=== PATIENT | male | born 1940 | race Caucasian/White ===

== ENCOUNTER 2023-08-25 15:51 | Inpatient (IN) | payer MEDICARE, SELFPAY ==
[2023-08-25] VITALS (13 sets, daily range): BP systolic 112–199; BP diastolic 65–94; PULSE 60–73; BMI 23.6
--- NOTE | 2023-08-25 12:59 | ED.GENMED ---
History of Present Illness
General
Chief Complaint: Weakness
Source: patient and family
Exam Limitations: none
Time Seen by Provider: 08/25/23 12:58
Nursing documentation reviewed up to this point in time: agreed with
Travel History
Have you had any contact with someone who has COVID-19?: No
Do you have any symptoms of coronavirus? Fever > 100 degrees, chills, cough, shortness of breath, sore throat, loss of taste or smell, muscle aches, or headache?: No
History of Present Illness
History of Present Illness:
83-year-old male with history of CVA, HTN, HLD, pacemaker, dementia, NIDDM, dialysis M/W/FOR, did not go today, Parkinsonism (not officially diagnosed per family), presents for slurred speech since 4 a.m., fall yesterday due to leg weakness 'they
just give out.' Treating with Valcyclovir for shingles diagnosed 2 weeks ago. States 'I fell a couple of times, I just collapse.' Son and daughter in law at bedside state they saw him last week and then today he has a significant change in cognitive
function, speech slurred, having trouble with fluency of thoughts. Awakened at 4:30 this a.m. to go to dialysis (he drives himself) and he 'couldn't even walk' due to weakness in legs and 'both my feet are numb.'
He has had worsening 'shakes' of arms and hands.
Past History
Past History
ED Past Medical History: CAD, CHF, HTN, Hypercholesterolemia, IDDM and Renal failure (End-stage renal disease, dialysis dependent)
ED Past Surgical History: Cardiac (Cardiac cath with stents, Pacemaker) and Urological (Bladder and kidneys removed due to CA, Prostatectomy)
Social History
Tobacco: Former smoker
Alcohol: None
Personal:
Living: with family
Employment: Retired
Family History
Family History: Other (Noncontributory)
Review of Systems
Review of Systems
Allergies reviewed?: Yes
All Other Systems: ROS reviewed and negative except as documented in HPI and ROS
Constitutional: Denies fever
Respiratory: Denies trouble breathing
Cardiac: Denies chest pain, diaphoresis, palpitations or syncope
ABD/GI: Denies abdominal pain, nausea, vomiting, diarrhea, constipated or anorexia
: Reports other (Anuric, on dialysis)
Musculoskeletal: Denies edema
Skin: Reports no symptoms
Neurological: Reports weakness (legs are weak, they give out); Denies headache
Phy Exam
Physical Exam
Physical Exam:
GENERAL: No acute distress. A&Ox3.
CONSTITUTIONAL: Afebrile.
EYES: Clear, conjunctivae normal
ENMT: moist mucus membranes, Pharynx nl
RESPIRATORY: Regular respirations, nonlabored, lungs clear.
CARDIOVASCULAR: Regular rate and rhythm, no murmurs, no rubs.
GI: Soft, nontender, normal BS
MUSCULOSKELETAL: Moves with ease. Well perfused.
SKIN: Warm, dry, pink
PSYCH: Normal mood and affect. Well kept, interactive and appropriate
NEUROLOGIC: Awake, alert and oriented. Speech mildly garbled but totally comprehendible. Strength equal throughout 11/18. Xaxnae-fa-lave intact. Essential tremor upper and lower extremities. no focal neurological deficits
Course
Orders/Labs/Results
Orders:
Orders
08/25/23 13:18
CT Head W/o Iv Contrast Urgent
Comment:
Reason For Exam: slurred speech, legs weak, falls
08/25/23 13:40
Complete Blood Count/With Diff Urgent
Comprehensive Metabolic Panel Urgent
Folate Urgent
Free T4 Urgent
TSH Reflex To Free T4 Urgent
Comment: ADD ON
Vitamin B12 Urgent
08/25/23 14:21
Add On- LAB Urgent
Tests Added?: TSH reflex T4
08/25/23 14:35
NEPHROLOGY CONSULT Urgent
Consulting Provider: Jorje Hansen V.
Was physician already notified: Yes
Reason for consult: dialysis pt being admitted
08/25/23 Dinner
1600 calorie (13 carb) Diabetic
At Your Request: Limited, Executive Sales Assistant Required
Does patient need a safe tray?: No
08/25/23 15:12
Admit/Transfer Patient As Directed
Co-Sign Provider:
Level of Care: Inpatient admission
Assign to:: Telemetry
Physician / Group: hosp
Diagnosis: ESRD/ FAlls
Reason for Telemetry: Medication for Arrhythmia
Date to Stop Telemetry: 08/27/23
Time to Stop Telemetry: 11:00
Reason for Hospitalization: End-stage renal disease/change in mental status
Expected length of stay greater than two midnights?: Yes
ELOS- Estimated Length of Stay in days: 3
I certify the patient meets the requirements for IP care: Yes
08/25/23 15:16
Code Status As Directed
Resuscitation Status: Full Code
08/25/23 17:17
Carbidopa/Levodopa [Sinemet 25-100] 1 tablet PO TID
Dextrose 50%-Water [Dextrose 50% Syringe] 12.5 grams IV [id number] PRN
Glucagon [GlucaGen] 1 mg IM PRN PRN
Insulin Aspart Corrective Low [Novolog Flexpen-Low Resistance] See Protocol SC AC
08/25/23 17:17
Activity As Directed
Activity Level: With Assistance
Bedside Glucose Monitoring As Directed
Frequency: AC&HS
Comment: Change to q6h if pt on TPN, tube feeding or not eating
Precautions As Directed
Type of Precautions: Other
Comment: Falls
Vital Signs As Directed
Frequency: Per unit guidelines
DX Deep Vein Thrombosis Video Routine
08/25/23 18:00
Calcium Acetate [Phoslo] 1,334 mg PO AC
Midodrine [ProAmatine] 10 mg PO TID @ 0800,1200,1700
08/25/23 19:43
TSH Routine
08/25/23 20:00
Docusate Sodium [Colace] 100 mg PO BID
Heparin 5,000 units SC Q12
Pantoprazole [Protonix] 40 mg PO BID
Pregabalin [Lyrica] 75 mg PO BID
08/25/23 22:00
Atorvastatin [Lipitor] 20 mg PO HS
Donepezil [Aricept] 5 mg PO HS
08/26/23 06:00
Basic Metabolic Panel IN AM
Complete Blood Count/No Diff IN AM
Glycohemoglobin (HgbA1c) IN AM
Iron IN AM
Magnesium IN AM
Total Iron Binding IN AM
08/26/23 07:00
Levothyroxine [Synthroid] 100 mcg PO DAILY AT 0700
08/26/23 08:00
Cilostazol [Pletal] 100 mg PO DAILY
Gabapentin [Neurontin] 300 mg PO DAILY
Memantine HCl [Namenda] 5 mg PO DAILY
Sertraline HCl [Zoloft] 50 mg PO DAILY
08/27/23 06:00
Basic Metabolic Panel IN AM
Complete Blood Count/No Diff IN AM
08/27/23 11:00
DC Protocol for Telemetry ONCE
08/28/23 06:00
Basic Metabolic Panel IN AM
Complete Blood Count/No Diff IN AM
08/28/23 08:00
Midodrine [ProAmatine] 5 mg PO MOWEFR@0800
Abnormal Lab Results
08/25/23
13:40
RBC 3.34 L 10^6/uL
(4.70-6.10)
Hgb 11.6 L g/dL
(13.0-18.0)
Hct 34.5 L %
(39.0-52.0)
MCV 103.3 H fL
(80.0-94.0)
MCH 34.7 H pg
(27.0-31.0)
RDW 14.8 H %
(11.5-14.5)
Absolute Lymphs (auto) 0.8 L 10^3/uL
(1.2-3.4)
Immature Gran % 0.6 H %
(0-0.5)
Neutrophils % 81.5 H %
(42.2-75.2)
Lymphocytes % 12.0 L %
(20.5-51.1)
Sodium 134 L mmol/L
(135-145)
Potassium 6.0 H mmol/L
(3.5-5.1)
Chloride 97 L mmol/L
(98-107)
BUN 65 H mg/dl
(9-20)
Creatinine 4.7 H* mg/dL
(0.7-1.3)
Glucose 196 H mg/dl
(70-99)
TSH (Reflex) 5.43 H uIU/ml
(0.47-4.68)
08/25/23 13:40
08/25/23 13:40
Vital Signs
Initial and Last Documented VS:
Initial Vital Signs
Temp Pulse Resp BP Pulse Ox
98.0 F 70 16 193/71 98
08/25/23 11:50 08/25/23 11:50 08/25/23 11:50 08/25/23 11:50 08/25/23 11:50
Last Documented Vital Signs
Temp Pulse Resp BP Pulse Ox
97.7 F 68 18 173/74 97
08/25/23 20:18 08/25/23 20:18 08/25/23 20:18 08/25/23 20:18 08/25/23 20:18
MDM/Problems Addressed
Differential Diagnosis Includes:
CVA, TIA, Diabetic neuropathy, essential tremor, Parkinson's
Acute changes vs exacerbation of chronic issues
MDM/Problems Addressed:
83-year-old male with history of CVA, HTN, HLD, pacemaker, dementia, NIDDM, dialysis M/W/FOR, did not go today, Parkinsonism (not officially diagnosed per family), presents for slurred speech since 4 a.m., fall yesterday due to leg weakness 'they
just give out.' Treating with Valcyclovir for shingles diagnosed 2 weeks ago. States 'I fell a couple of times, I just collapse.' Son and daughter in law at bedside state they saw him last week and then today he has a significant change in cognitive
function, speech slurred, having trouble with fluency of thoughts. Awakened at 4:30 this a.m. to go to dialysis (he drives himself) and he 'couldn't even walk' due to weakness in legs and 'both my feet are numb.'
He has had worsening 'shakes' of arms and hands.
Afebrile, AA&O No focal neurological deficits. Denies hitting head during any of his falls, not anticoagulated.
08/25/2023 1426 PM
CBC with no clinically significant abnormality
CMP: Serum 6.0, BUN/creat 65/4.7, glucose [address]: Radiology report reviewed: No acute intracranial changes.
Hospitalist notified of admission
Nephrology consult in
Pt to be dialyzed today.
*Critical Care Note
Total Time (30-74mins, 75-104mins- exclusive of procedures): Not Applicable
ED Attending Note
-
Portions of this chart may have been created with voice recognition software.� Occasional wrong word or��sound alike� substitutions may have occurred due to the inherent limitations of voice recognition software.
Discharge Plan
Departure
Patient Disposition: Admit
Date of Disposition: 08/25/23
Time of Disposition: 14:36
Admit to: Med/Surg
Presentation/result/management discussed w/ accepting MD/DO: Hospitalist
Condition: Fair
Discharge Problem:
Acute hyperkalemia, Dialysis patient, Bilateral leg weakness, Fall, Altered mental state
Interventions
Interventions:
*Risk Screen - Suicide Last Done: 08/25/23 13:06
*General Assessment Last Done: 08/25/23 13:05
*Neglect/Abuse Screening Last Done: 08/25/23 13:06
ED- Fall Risk Assessment Last Done: 08/25/23 13:07
*ED COVID-19 Vaccine History Last Done: 08/25/23 11:50
*Nursing Disposition Last Done: 08/25/23 19:56
ED- Cardiac Assessment Last Done: 08/25/23 13:07
ED- Neurological Assessment Last Done: 08/25/23 13:07
ED- Pulmonary Assessment Last Done: 08/25/23 13:07
Discharge Date and Time
Discharge Date/Time: 08/25/23 19:57
[2023-08-25 14:06] LABS: % Basophils 0.3 % (0-2); % Eosinophils 0.2 % (0-6); % Immature Granulocytes 0.6 % (0-0.5); % Monocytes 5.4 % (1.7-9.3); % Neutrophils 81.5 % (42.2-75.2); Absolute Lymphocytes 0.8 10^3/uL (1.2-3.4); Absolute Monocytes 0.4 10^3/uL (0.1-0.6); Absolute Neutrophils 5.3 10^3/uL (1.4-6.5); Hematocrit 34.5 % (39.0-52.0); Hemoglobin 11.6 g/dL (13.0-18.0); Mean Corp Hgb Conc. 33.6 g/dL (33.0-37.0); Mean Corpuscular Hgb 34.7 pg (27.0-31.0); Mean Corpuscular Volume 103.3 fL (80.0-94.0); Mean Platelet Volume 10.2 fL (7.4-10.4); Nucleated Red Blood Cells % 0.3 % (-); Platelet Count 173 10^3/uL (130-400); Red Blood Cell Count 3.34 10^6/uL (4.70-6.10); Red Cell Dist. Width 14.8 % (11.5-14.5); White Blood Cell Count 6.4 10^3/uL (4.8-10.8)
[2023-08-25 14:26] LABS: ALT (SGPT) < 10 U/L (0-50); AST (SGOT) 32 U/L (17-59); Albumin 4.3 g/dl (3.5-5.0); Alkaline Phosphatase 98 U/L (38-126); Blood Urea Nitrogen 65 mg/dl (9-20); Calcium 9.2 mg/dl (8.4-10.2); Carbon Dioxide 27 mmol/L (22-30); Chloride 97 mmol/L (98-107); Estimated Creatinine Clearance 12 ml/min; Glucose 196 mg/dl (70-99); Sodium 134 mmol/L (135-145); Total Bilirubin 0.9 mg/dl (0.2-1.3); Total Protein 6.7 g/dl (6.3-8.2); eGFR 11.66
--- NOTE | 2023-08-25 14:35 | PHANOTE ---
08/25/2023, [employer], spoke to pt.'s son and used pharmacy fill data and pt.'s own med. bottles to obtain pt.'s med. history; pt.'s son is unsure if pt. is using Acyclovir 5% ointment, clotrimazole-betamethasone cream, lidocaine-prilocaine
cream, methylprednisolone dose pack, or Trulicity 1.5 mg/0.5mL so I could not confirm these.
[2023-08-25 15:28] LABS: Folate 16.4 ng/ml (2.76-20); Vitamin B12 598 pg/ml (239-931)
--- NOTE | 2023-08-25 15:31 | HPS.HSE ---
Family Physician
-
Family Physician: Milton Palacios
Chief Complaint
-
Recurrent falls this week fell yesterday and resulted in missing today's scheduled hemodialysis
History of Present Illness
83-year-old male with history of CVA, HTN, HLD, pacemaker, dementia, NIDDM, dialysis M/W/FOR, did not go today, Parkinsonism (not officially diagnosed per family), presents for slurred speech since 4 a.m., fall yesterday due to leg weakness 'they
just give out.'
Treating with Valcyclovir for shingles diagnosed 2 weeks ago. He is just now finishing his steroid taper and really does not refer pain to that area anymore.
States 'I fell a couple of times, I just collapse.' Son and daughter in law at bedside state they saw him last week and then today he has a significant change in cognitive function, speech slurred, having trouble with fluency of thoughts.
Awakened at 4:30 this a.m. to go to dialysis (he drives himself) and he 'couldn't even walk' due to weakness in legs and 'both my feet are numb.'
He has had worsening 'shakes' of arms and hands. Although his prescription states he is to take Sinemet 3 times a day he has only been taking it twice a day his Sinemet dosing has been managed by his PCP mostly over the phone based on presentations
and description given to him over the phone. Never been seen by a neurologist to make official diagnosis. He also admits to stopping completely his levothyroxine dosing normal for the last year when asked why he did that he says 'I am stupid'
daughter at bedside acknowledges the patient's noncompliance to some of his medications also admits to the patient's spouse is his only other caregiver who is also inform them mostly sleeps during the day. He is supposed to use a walker but most of
the time does not.
Medical History
Past Medical History
Past Medical History: Reports CAD (Prior cardiac cath with stents and pacemaker), Dementia, Hypothyroidism, NIDDM and Renal Failure (Apparently has had bladder resection for bladder tumor and also nephrectomies/admits to no urine output)
Past Surgical History: Reports Urological
Additional Past Surgical History:
Prostatectomy
Nephrectomy
Bladder tumor resection
Social History
Unable to obtain full social history at this time due to: Dementia
Tobacco: Former Smoker
Alcohol: None
Drug: None
Personal:
Living: With Family
Employment: Retired
Family History
Family History: Not pertinent
Allergies / Home Medications
Allergies reflects when Allergies were last updated in [employer].
Home Medications with original date entered in [employer]
Allergy/Medication List:
Allergies
Allergy/AdvReac Type Severity Reaction Status Date / Time
No Known Allergies Allergy Verified 08/25/23 11:54
Home Medications
donepezil 5 mg tablet 5 mg PO HS 07/15/16
pantoprazole 40 mg tablet,delayed release 40 mg PO BID 07/15/16
sertraline 50 mg tablet 50 mg PO DAILY 07/19/16
dulaglutide 1.5 mg/0.5 mL subcutaneous pen injector (Trulicity) 1.5 mg SQ QWEEK 07/16/19
gabapentin 300 mg capsule 300 mg PO TID 07/16/19
memantine 10 mg tablet 10 mg PO DAILY 07/16/19
midodrine 5 mg tablet 5 mg PO MOWEFR@0800 07/16/19
acyclovir 5 % topical ointment 1 applic topical TID 08/25/23
calcium acetate(phosphat bind) 667 mg capsule 1,334 mg PO TID 08/25/23
carbidopa 25 mg-levodopa 100 mg tablet 1 tab PO TID 08/25/23
cilostazol 50 mg tablet 100 mg PO DAILY 08/25/23
clotrimazole-betamethasone 1 %-0.05 % topical cream 1 applic topical TID 08/25/23
cyclobenzaprine 10 mg tablet 10 mg PO TID 08/25/23
levothyroxine 100 mcg tablet 100 mcg PO DAILY 08/25/23
lidocaine-prilocaine 2.5 %-2.5 % topical cream 1 applic topical MOWEFR 08/25/23
methylprednisolone 4 mg tablets in a dose pack 0 mg PO PER PKG DIR 08/25/23
midodrine 10 mg tablet 10 mg PO TID 08/25/23
pregabalin 75 mg capsule 75 mg PO BID 08/25/23
simvastatin 40 mg tablet 40 mg PO HS 08/25/23
valacyclovir 500 mg tablet 500 mg PO BID 08/25/23
Review of Systems
-
Unable to obtain full review of systems at this time due to: Other (Scanning at times stuttering speech with loss of fluency at times)
History Source: Family
Constitutional: Reports Fatigue
EENT: Reports No Symptoms
Respiratory: Reports No Symptoms
Abdomen/GI: Reports No Symptoms
: Reports Other (No urine output)
Neurological: Reports Numbness (Peripheral neuropathy)
Physical Exam
Vital Signs
Vital Signs
Temp Pulse Resp BP Pulse Ox
98.0 F 61 13 190/75 92
08/25/23 11:50 08/25/23 15:00 08/25/23 15:00 08/25/23 15:00 08/25/23 15:00
Physical Exam
General: No Apparent Distress
HEENT: NormoCephalic
Respiratory: Clear
Cardiac: S1/S2 and Regular Rhythm
GI: Soft
Musculoskeletal: Other (Diminished peripheral pulses diminished sensation)
Neuro: Awake, Alert, No Sensory Deficits (Diminished peripheral sensation to light touch) and Tremors
Psych: Calm and Intact Judgment/Insight
Laboratory Results
-
08/25/23 13:40
08/25/23 13:40
Laboratory Results
Total Bilirubin 0.9 mg/dl (0.2-1.3) 08/25/23 13:40
AST 32 U/L (17-59) 08/25/23 13:40
ALT < 10 U/L (0-50) 08/25/23 13:40
Alkaline Phosphatase 98 U/L (38-126) 08/25/23 13:40
Data Reviewed
-
Critical Care Time (in minutes): 56
CT Scan: Discussed with Physician (Head CT without intracranial abnormality of note)
Lab Data: Labs Reviewed by me (Macrocytosis with a MCV of 103/hemoglobin actually better than it has been in some time at 11.6/creatinine 4.7/blood sugar 196 sodium 134/potassium 6.0/BUN 65/B12 level 598 and within normal limits as is folate)
Impression/Plan
-
IMPRESSION:
83-year-old male with history of CVA, HTN, HLD, pacemaker, dementia, NIDDM, dialysis M/W/FOR, did not go today, Parkinsonism (not officially diagnosed per family), presents for slurred speech since 4 a.m., fall yesterday due to leg weakness 'they
just give out.'
Treating with Valcyclovir for shingles diagnosed 2 weeks ago. He is just now finishing his steroid taper and really does not refer pain to that area anymore.
States 'I fell a couple of times, I just collapse.' Son and daughter in law at bedside state they saw him last week and then today he has a significant change in cognitive function, speech slurred, having trouble with fluency of thoughts.
Awakened at 4:30 this a.m. to go to dialysis (he drives himself) and he 'couldn't even walk' due to weakness in legs and 'both my feet are numb.'
He has had worsening 'shakes' of arms and hands. Although his prescription states he is to take Sinemet 3 times a day he has only been taking it twice a day his Sinemet dosing has been managed by his PCP mostly over the phone based on presentations
and description given to him over the phone. Never been seen by a neurologist to make official diagnosis. He also admits to stopping completely his levothyroxine dosing normal for the last year when asked why he did that he says 'I am stupid'
daughter at bedside acknowledges the patient's noncompliance to some of his medications also admits to the patient's spouse is his only other caregiver who is also inform them mostly sleeps during the day. He is supposed to use a walker but most of
the time does not.
Change in mental status and recurrent falls
-No focal abnormality on exam and head CT unremarkable
-Will need to rule out metabolic abnormality
-Patient stopped taking any thyroid medication for the last year TSH pending resume 100 mcg dosage of Synthroid
-Macrocytic anemia noted but B12 and folate levels within normal limits here
-Possible neurologic diagnoses may be in relation to progressing Parkinson's as not properly treated/
-Other possibility would be acute ischemic events not noted on CT imaging will obtain MRI
-Other consideration would be ongoing peripheral neuropathy from longstanding diabetes/continue gabapentin/on muscle relaxant therapy with cyclobenzaprine which will be held
-Check orthostatics suspect autonomic dysfunction given history of neuropathy, diabetes and end-stage renal disease/continue midodrine
-Ongoing neurologic assessment
-PT OT eval
Parkinson's disease
-Has been on Sinemet for years from his PCP
-Never had neurologic evaluation
-Requested consultation with neurology will not see the patient inpatient and would like to see as outpatient to address Parkinson's
-Continue on carbidopa levodopa 25-100 3 times daily
End-stage renal disease on hemodialysis
-Missed scheduled Monday dialysis scheduled for today
-Will address hyperkalemia
-Nephrology consulted will obtain HD today
Hypothyroidism
-Noncompliant to levothyroxine
-Restart and obtain TSH
Macrocytosis
-B12 and folate levels normal
-Obtain iron levels
Recent herpes zoster involving the right flank dermatome
-Has completed course of steroid therapy and Valtrex
-On inspection of the area seems to be fully scabbed over and no significant pain or neuropathy
Prior history of bladder tumor/resection
-Prior bilateral nephrectomies/prostatectomy
-Has no urine output
-On hemodialysis
Type 2 diabetes mellitus
-Medication management is weekly Trulicity
-Unavailable here will give sign scale coverage
-Suspect underlying diabetic neuropathy
Prior history of spinal stenosis
-Would be prudent to also obtain spine imaging
Peripheral arterial disease
-Continue Pletal
Full CODE STATUS
DVT prophylaxis with heparin
Discussed above management plan with daughter at bedside/will probably need to at discharge obtain some help at home versus alternative living arrangement for safety
[2023-08-25 16:15] LABS: TSH Reflex To Free T4 5.43 uIU/ml (0.47-4.68)
--- NOTE | 2023-08-25 16:17 | CON.MD ---
Addendum entered and electronically signed by Jorje Hansen DO 08/25/23 16:27:
Will provide hydralazine 10 mg IV every 6 hours for systolic blood pressure greater than 165
Fluid restriction 48 ounces daily
Low sodium and potassium diet
Original Note:
Consultation - Medical
-
Impression:
ESRD MWF
Uncontrolled hypertension
Hyperkalemia
History of stroke
Dementia
Pacemaker
Diabetes
Hypotension on dialysis
Anemia
Parkinson's
hx Bladder CA nwith cystectomy and nephrectomies, prostatectomy
AVF
Hypothyroid
History of coronary artery disease with multiple stenting procedure
Plan:
HD tomorrow
lokelma tonight re: hyperkalemia
bp control
prn hydralazine provided for hypertension
[2023-08-25] MEDS: LOKELMA 10 GRAM PO (16:40)
[2023-08-25 16:44] LABS: Free T4 0.78 ng/dl (0.78-2.19)
[2023-08-25] MEDS: SINEMET 25-100 1 TABLET PO ×2 (18:47→21:17)
[2023-08-25] MEDS: PHOSLO 1334 MG PO (18:47)
[2023-08-25] MEDS: ProAmatine 10 MG PO (18:47)
[2023-08-25 19:10] LABS: Glucose - Point of Care 220 mg/dl (70-99)
[2023-08-25] MEDS: LIPITOR 20 MG PO (21:17)
[2023-08-25] MEDS: PROTONIX 40 MG PO (21:17)
[2023-08-25] MEDS: COLACE 100 MG PO (21:17)
[2023-08-25] MEDS: HEPARIN 5000 UNITS SC (21:18)
[2023-08-25] MEDS: ARICEPT 5 MG PO (21:18)
[2023-08-25] MEDS: NOVOLOG FLEXPEN-LOW RESISTANCE SC (21:21)
[2023-08-25 21:29] LABS: Glucose - Point of Care 169 mg/dl (70-99)
--- NOTE | 2023-08-25 23:55 | PTCARENOTE ---
Received patient from ED [facility]. Patient ambulated from stretcher to bed with assist x 1. Pt oriented to room. Patient placed on compliance monitor , vital signs taken . Offered no complaints. Will Continue to assess patient status.
[2023-08-26] VITALS (7 sets, daily range): BP systolic 83–165; BP diastolic 35–89; PULSE 69–73; BMI 23.3
[2023-08-26] MEDS: SYNTHROID 100 MCG PO (05:25)
[2023-08-26 06:14] LABS: Hematocrit 31.4 % (39.0-52.0); Hemoglobin 10.9 g/dL (13.0-18.0); Mean Corp Hgb Conc. 34.7 g/dL (33.0-37.0); Mean Corpuscular Hgb 35.5 pg (27.0-31.0); Mean Corpuscular Volume 102.3 fL (80.0-94.0); Mean Platelet Volume 10.1 fL (7.4-10.4); Platelet Count 166 10^3/uL (130-400); Red Blood Cell Count 3.07 10^6/uL (4.70-6.10); Red Cell Dist. Width 14.6 % (11.5-14.5); White Blood Cell Count 6.3 10^3/uL (4.8-10.8)
[2023-08-26 06:44] LABS: Blood Urea Nitrogen 81 mg/dl (9-20); Calcium 9.1 mg/dl (8.4-10.2); Carbon Dioxide 28 mmol/L (22-30); Chloride 96 mmol/L (98-107); Estimated Creatinine Clearance 10 ml/min; Glucose 114 mg/dl (70-99); Iron 140 ug/dl (49-181); Magnesium 2.3 mg/dl (1.6-2.3); Potassium 5.6 mmol/L (3.5-5.1); Sodium 137 mmol/L (135-145); eGFR 9.06
[2023-08-26 06:54] LABS: Percent Saturation 90 % (20-50); Total Iron Binding Capacity 154 ug/dl (261-462)
[2023-08-26 08:44] LABS: Glycohemoglobin (HgbA1c) 6.6 % (4.0-5.6)
[2023-08-26 08:48] LABS: Glucose - Point of Care 91 mg/dl (70-99)
[2023-08-26] MEDS: NOVOLOG FLEXPEN-LOW RESISTANCE SC ×2 (09:40→12:39)
--- NOTE | 2023-08-26 10:07 | W.PN.HOSP.TC ---
Today's Communication/Plan
-
May need to workup continue to check orthostatics once up and about assess PT OT
Check orthostatics
Will need to have an outpatient follow-up workup with neurology as would not be worked up in the hospital
MRI is incompatible with his pacer
Assessment / Plan
Assessment / Plan
83-year-old male with history of CVA, HTN, HLD, pacemaker, dementia, NIDDM, dialysis M/W/FOR, did not go today, Parkinsonism (not officially diagnosed per family), presents for slurred speech since 4 a.m., fall yesterday due to leg weakness 'they
just give out.'
Treating with Valcyclovir for shingles diagnosed 2 weeks ago.� He is just now finishing his steroid taper and really does not refer pain to that area anymore.
�States 'I fell a couple of times, I just collapse.' Son and daughter in law at bedside state they saw him last week and then today he has a significant change in cognitive function, speech slurred, having trouble with fluency of thoughts.
�Awakened at 4:30 this a.m. to go to dialysis (he drives himself) and he 'couldn't even walk' due to weakness in legs and 'both my feet are numb.'
He has had worsening 'shakes' of arms and hands.� Although his prescription states he is to take Sinemet 3 times a day he has only been taking it twice a day his Sinemet dosing has been managed by his PCP mostly over the phone based on presentations
and description given to him over the phone.� Never been seen by a neurologist to make official diagnosis.� He also admits to stopping completely his levothyroxine dosing normal for the last year when asked why he did that he says 'I am stupid'
daughter at bedside acknowledges the patient's noncompliance to some of his medications also admits to the patient's spouse is his only other caregiver who is also inform them mostly sleeps during the day.� He is supposed to use a walker but most of
the time does not.
Change in mental status and recurrent falls
-No focal abnormality on exam and head CT unremarkable
-Will need to rule out metabolic abnormality
-Patient stopped taking any thyroid medication for the last year TSH pending resume 100 mcg dosage of Synthroid
-Macrocytic anemia noted but B12 and folate levels within normal limits here
-Possible neurologic diagnoses may be in relation to progressing Parkinson's as not properly treated/Will only be seen by neurology as outpatient to work this up
-Other possibility would be acute ischemic events not noted on CT imaging /His pacemaker is incompatible with MRI
-Other consideration would be ongoing peripheral neuropathy from longstanding diabetes/continue gabapentin/on muscle relaxant therapy with cyclobenzaprine which will be held
-Check orthostatics suspect autonomic dysfunction given history of neuropathy, diabetes and end-stage renal disease/continue midodrine
-Ongoing neurologic assessment
-PT OT eval
Parkinson's disease
-Has been on Sinemet for years from his PCP
-Never had neurologic evaluation
-Requested consultation with neurology will not see the patient inpatient and would like to see as outpatient to address Parkinson's
-Continue on carbidopa levodopa 25-100 3 times daily
End-stage renal disease on hemodialysis
-Missed scheduled Monday dialysis scheduled for today
-Will address hyperkalemia
-Nephrology consulted will obtain HD had to postponed to today 08/26
Hypothyroidism
-Noncompliant to levothyroxine
-Restart and obtain TSH
Macrocytosis
-B12 and folate levels normal
-Obtain iron levels
Recent herpes zoster involving the right flank dermatome
-Has completed course of steroid therapy and Valtrex
-On inspection of the area seems to be fully scabbed over and no significant pain or neuropathy
Prior history of bladder tumor/resection
-Prior bilateral nephrectomies/prostatectomy
-Has no urine output
-On hemodialysis
Type 2 diabetes mellitus
-Medication management is weekly Trulicity
-Unavailable here will give sign scale coverage
-Suspect underlying diabetic neuropathy
Prior history of spinal stenosis
-Would be prudent to also obtain spine imaging
-Lumbar sacral spine films do show severe osteoarthritic changes
Again pacer incompatible with MRI
-Will need to see how he does with PT/OT modalities may need to workup neuropathy from his lumbar disease
Peripheral arterial disease
-Continue Pletal
Anticipated Discharge: 24 - 48 hours
Subjective/Interval History
-
Date of Service: August 26, 2023
Remains hard of hearing/Speech seems to be a little betterUndergoing hemodialysis presently unable to get done yesterday due to lack of room
Objective Data
-
Labs:
Laboratory Results
08/26/23
05:30
WBC 6.3
Hgb 10.9 L
Hct 31.4 L
Plt Count 166
Sodium 137
Potassium 5.6 H
Chloride 96 L
Carbon Dioxide 28
BUN 81 H
Creatinine 5.8 H*
Glucose 114 H
Calcium 9.1
Vital Signs:
Vital Signs
Temp Pulse Resp BP Pulse Ox
97 F 66 18 107/59 99
08/26/23 03:47 08/26/23 03:47 08/26/23 03:47 08/26/23 03:47 08/26/23 03:47
Review of Systems
-
Unable to obtain full review of systems at this time due to: Dementia
History Source: Patient
Constitutional: Reports Weakness
EENT: Reports No Symptoms Reported
Respiratory: Reports No Symptoms
Cardiac: Reports No Symptoms
Abdomen/GI: Reports No Symptoms
Physical Exam
-
General: Comfortable
HEENT: Normocephalic
Respiratory: Clear to Auscultation
Cardiac: Regular Rhythm
GI: Soft, Nontender and Nondistended
Musculoskeletal: Edema, Right Lower Extrem and Edema, Left Lower Extrem
Neuro: Awake, Alert and Oriented
Psych: Calm and Confused
Data Reviewed
-
Total Time Spent with Patient (in minutes): 45
Labs: Labs Reviewed by me (Hgb 10.9/ creat5.8/ / K+ 5.6)
--- NOTE | 2023-08-26 10:32 | W.PN.NEPH.HD ---
Assessment
-
Patient seen on HD
sbp at 122 for current u/f
Progress Note - Hemodialysis
-
Date of Service: August 26, 2023
Duration: 30 minutes and 3 hours
Potassium Bath: 2
Calcium Bath: 2.5
Opti-Dialyzer: 160
Ultrafiltration: Other (1kg (EDW 70.5kg))
Blood Flow: 400
Dialysate Flow: 600
Heparin: none
EPO: none
[2023-08-26] MEDS: PHOSLO PO (10:39)
[2023-08-26 12:09] LABS: Glucose - Point of Care 86 mg/dl (70-99)
[2023-08-26] MEDS: HEPARIN 5000 UNITS SC ×2 (12:39→20:09)
[2023-08-26] MEDS: COLACE 100 MG PO ×2 (12:39→20:09)
[2023-08-26] MEDS: PROTONIX 40 MG PO ×2 (12:40→20:09)
[2023-08-26] MEDS: PHOSLO 1334 MG PO ×2 (12:40→17:06)
[2023-08-26] MEDS: PLETAL 100 MG PO (12:40)
[2023-08-26] MEDS: NEURONTIN 300 MG PO (12:40)
[2023-08-26] MEDS: SINEMET 25-100 1 TABLET PO ×3 (12:40→21:06)
[2023-08-26] MEDS: NAMENDA 5 MG PO (12:41)
[2023-08-26] MEDS: ZOLOFT 50 MG PO (12:41)
[2023-08-26] MEDS: FLUSH (NSS) 1 FLUSH IV (12:42)
[2023-08-26] MEDS: ProAmatine PO (12:45)
[2023-08-26] MEDS: MIRALAX 17 GRAMS PO (14:32)
[2023-08-26] MEDS: ProAmatine 10 MG PO ×2 (15:05→17:06)
--- NOTE | 2023-08-26 15:59 | PTCARENOTE ---
Pt's BP after HD was 165/86. Pt stating that he feels ok, just tired. Discussed with Dr. Velasquez about possibly adding administration parameters to pt's midodrine. Dr. Velasquez indicated that he would like to see pt's orthostatic BPs prior to
adding parameters. See documented orthostatic BPs. Pt's BP dropped to 83/38 with sitting, stating that he felt dizzy when sitting and then again when standing. Made Dr. Velasquez aware of above and administered Midodrine, will monitor.
[2023-08-26 16:12] LABS: Glucose - Point of Care 298 mg/dl (70-99)
[2023-08-26] MEDS: ULTRAM 50 MG PO (18:18)
[2023-08-26] MEDS: NOVOLOG FLEXPEN-LOW RESISTANCE 3 UNITS SC (18:18)
[2023-08-26] MEDS: LIPITOR 20 MG PO (21:06)
[2023-08-26] MEDS: ARICEPT 5 MG PO (21:06)
[2023-08-26 21:27] LABS: Glucose - Point of Care 131 mg/dl (70-99)
[2023-08-27 03:10] VITALS: BP 132/46
[2023-08-27] MEDS: SYNTHROID 100 MCG PO (04:42)
[2023-08-27 06:00] VITALS: BMI 23.0
[2023-08-27 06:47] LABS: Hematocrit 32.4 % (39.0-52.0); Hemoglobin 11.1 g/dL (13.0-18.0); Mean Corp Hgb Conc. 34.3 g/dL (33.0-37.0); Mean Corpuscular Hgb 35.2 pg (27.0-31.0); Mean Corpuscular Volume 102.9 fL (80.0-94.0); Mean Platelet Volume 10.5 fL (7.4-10.4); Platelet Count 154 10^3/uL (130-400); Red Blood Cell Count 3.15 10^6/uL (4.70-6.10); Red Cell Dist. Width 14.1 % (11.5-14.5)
[2023-08-27 07:01] LABS: Blood Urea Nitrogen 46 mg/dl (9-20); Calcium 8.5 mg/dl (8.4-10.2); Carbon Dioxide 31 mmol/L (22-30); Chloride 92 mmol/L (98-107); Estimated Creatinine Clearance 14 ml/min; Glucose 100 mg/dl (70-99); Potassium 5.2 mmol/L (3.5-5.1); Sodium 129 mmol/L (135-145); eGFR 14.59
[2023-08-27 07:50] LABS: Glucose - Point of Care 117 mg/dl (70-99)
[2023-08-27 08:00] VITALS: BP 137/96
[2023-08-27] MEDS: NOVOLOG FLEXPEN-LOW RESISTANCE SC ×2 (08:57→14:38)
[2023-08-27] MEDS: ZOLOFT 50 MG PO (09:31)
[2023-08-27] MEDS: PROTONIX 40 MG PO ×2 (09:31→19:49)
[2023-08-27] MEDS: SINEMET 25-100 1 TABLET PO ×3 (09:32→21:54)
[2023-08-27] MEDS: ProAmatine PO (09:32)
[2023-08-27] MEDS: NAMENDA 5 MG PO (09:33)
[2023-08-27] MEDS: NEURONTIN 300 MG PO (09:33)
[2023-08-27] MEDS: COLACE 100 MG PO ×2 (09:34→19:49)
[2023-08-27] MEDS: HEPARIN 5000 UNITS SC ×2 (09:34→19:49)
[2023-08-27] MEDS: MIRALAX 17 GRAMS PO (09:36)
[2023-08-27] MEDS: PHOSLO 1334 MG PO ×3 (09:44→18:09)
[2023-08-27] MEDS: PLETAL 100 MG PO (09:44)
[2023-08-27 10:04] VITALS: BP 120/49; PULSE 67; O2SAT 95
--- NOTE | 2023-08-27 10:45 | W.PN.HOSP.TC ---
Today's Communication/Plan
-
Not sure a safe discharge is yet as was significantly orthostatic with BPs as low as low 80s yesterday after dialysis
Will place on compression stockings
Continue midodrine especially on dialysis days
Will need to follow-up with neurology as outpatient as they will not see here in regards to his Parkinson's
Can discontinue no logic checks at this point
Assessment / Plan
Assessment / Plan
83-year-old male with history of CVA, HTN, HLD, pacemaker, dementia, NIDDM, dialysis M/W/FOR, did not go today, Parkinsonism (not officially diagnosed per family), presents for slurred speech since 4 a.m., fall yesterday due to leg weakness 'they
just give out.'
Treating with Valcyclovir for shingles diagnosed 2 weeks ago.� He is just now finishing his steroid taper and really does not refer pain to that area anymore.
�States 'I fell a couple of times, I just collapse.' Son and daughter in law at bedside state they saw him last week and then today he has a significant change in cognitive function, speech slurred, having trouble with fluency of thoughts.
�Awakened at 4:30 this a.m. to go to dialysis (he drives himself) and he 'couldn't even walk' due to weakness in legs and 'both my feet are numb.'
He has had worsening 'shakes' of arms and hands.� Although his prescription states he is to take Sinemet 3 times a day he has only been taking it twice a day his Sinemet dosing has been managed by his PCP mostly over the phone based on presentations
and description given to him over the phone.� Never been seen by a neurologist to make official diagnosis.� He also admits to stopping completely his levothyroxine dosing normal for the last year when asked why he did that he says 'I am stupid'
daughter at bedside acknowledges the patient's noncompliance to some of his medications also admits to the patient's spouse is his only other caregiver who is also inform them mostly sleeps during the day.� He is supposed to use a walker but most of
the time does not.
Change in mental status and recurrent falls/workup thus far consistent with significant autonomic dysfunction multifactorial/from ESRD/diabetes neuropathy/Parkinson's?/Orthostatic hypotension especially on dialysis days
-No focal abnormality on exam and head CT unremarkable
-Patient stopped taking any thyroid medication for the last year TSH pending resume 100 mcg dosage of Synthroid
-Macrocytic anemia noted but B12 and folate levels within normal limits here
-Possible neurologic diagnoses may be in relation to progressing Parkinson's as not properly treated/Will only be seen by neurology as outpatient to work this up
-Other possibility would be acute ischemic events not noted on CT imaging /His pacemaker is incompatible with MRI
-Other consideration would be ongoing peripheral neuropathy from longstanding diabetes/continue gabapentin/on muscle relaxant therapy with cyclobenzaprine which will be held/was probably on toxic levels of gabapentin as he was also taking Lyrica
-Check orthostatics suspect autonomic dysfunction given history of neuropathy, diabetes and end-stage renal disease/continue midodrine/add compression stockings
-Ongoing neurologic assessment
-Continue midodrine at higher dosages on dialysis days
-PT OT eval recommending VNA
Parkinson's disease
-Has been on Sinemet for years from his PCP
-Never had neurologic evaluation
-Requested consultation with neurology will not see the patient inpatient and would like to see as outpatient to address Parkinson's
-Continue on carbidopa levodopa 25-100 3 times daily
End-stage renal disease on hemodialysis
-Missed scheduled Monday dialysis scheduled for today
-Will address hyperkalemia
-Nephrology consulted will obtain HD had to postponed to today 08/26
Hypothyroidism
-Noncompliant to levothyroxine
-Restart and obtain TSH
Macrocytosis
-B12 and folate levels normal
-Obtain iron levels
Recent herpes zoster involving the right flank dermatome
-Has completed course of steroid therapy and Valtrex
-On inspection of the area seems to be fully scabbed over and no significant pain or neuropathy
Prior history of bladder tumor/resection
-Prior bilateral nephrectomies/prostatectomy
-Has no urine output
-On hemodialysis
Type 2 diabetes mellitus
-Medication management is weekly Trulicity
-Unavailable here will give sign scale coverage
-Suspect underlying diabetic neuropathy
Prior history of spinal stenosis
-Would be prudent to also obtain spine imaging
-Lumbar sacral spine films do show severe osteoarthritic changes
Again pacer incompatible with MRI
-Will need to see how he does with PT/OT modalities may need to workup neuropathy from his lumbar disease
Peripheral arterial disease
-Continue Pletal
Anticipated Discharge: Within 24 hours
Subjective/Interval History
-
Date of Service: August 27, 2023
Speech is more fluent no significant neurologic changes or focal changes noted he was significantly orthostatic with attempts at becoming upright after his dialysis yesterday
Objective Data
-
Labs:
Laboratory Results
08/27/23
05:58
WBC 7.0
Hgb 11.1 L
Hct 32.4 L
Plt Count 154
Sodium 129 L D
Potassium 5.2 H
Chloride 92 L
Carbon Dioxide 31 H
BUN 46 H
Creatinine 3.9 H
Glucose 100 H
Calcium 8.5
Vital Signs:
Vital Signs
Temp Pulse Resp BP Pulse Ox
98.2 F 73 20 137/96 100
08/27/23 08:00 08/27/23 08:00 08/27/23 08:00 08/27/23 08:00 08/27/23 08:00
I&O
08/26/23 08/27/23 08/28/23
06:59 06:59 06:59
Intake Total 720 / 720
Balance 720 / 720
Review of Systems
-
Unable to obtain full review of systems at this time due to: Dementia
History Source: Patient and Family
Constitutional: Reports Fatigue and Weakness
Respiratory: Reports No Symptoms
Cardiac: Reports No Symptoms
Abdomen/GI: Reports No Symptoms
Physical Exam
-
General: Well Developed
HEENT: Normocephalic
GI: Soft
Rectal: Brown
Skin: Rash (Zoster form rash over the right flank dermatome/scabbed over no active vesicles)
Neuro: Awake, Alert and Oriented
Psych: Calm
Data Reviewed
-
Total Time Spent with Patient (in minutes): 45
Labs: Labs Reviewed by me
[2023-08-27 12:20] LABS: Glucose - Point of Care 128 mg/dl (70-99)
--- NOTE | 2023-08-27 12:38 | W.PN.NEPH.PH ---
Today's Communication / Plan
-
Dialysis tomorrow
Assessment/Plan
-
Impression:
ESRD MWF
Uncontrolled hypertension
Hyperkalemia
History of stroke
Dementia
Pacemaker
Diabetes
Hypotension on dialysis on manage
Anemia
Parkinson's
hx Bladder CA nwith cystectomy and nephrectomies, prostatectomy
AVF
Hypothyroid
History of coronary artery disease with multiple stenting procedure
Plan:
HD tomorrow
Blood pressure controlled at EDW
Midodrine for chronic hypotension
Continue phosphate binder therapy for
-
-
Date of Service: August 27, 2023
CC / HPI / ROS
-
Chief Complaint:
End-stage renal disease
History of Present Illness:
Blood pressure controlled at dry weight
Maintained on midodrine for chronic hypotension
ESRD Monday
Review of Systems:
No chest pain or shortness of
Lower extremity weakness
Labs
-
Labs:
WBC 7.0 10^3/uL (4.8-10.8) 08/27/23 05:58
RBC 3.15 10^6/uL (4.70-6.10) L 08/27/23 05:58
Hgb 11.1 g/dL (13.0-18.0) L 08/27/23 05:58
Hct 32.4 % (39.0-52.0) L 08/27/23 05:58
Plt Count 154 10^3/uL (130-400) 08/27/23 05:58
Sodium 129 mmol/L (135-145) L D 08/27/23 05:58
Potassium 5.2 mmol/L (3.5-5.1) H 08/27/23 05:58
Chloride 92 mmol/L (98-107) L 08/27/23 05:58
Carbon Dioxide 31 mmol/L (22-30) H 08/27/23 05:58
BUN 46 mg/dl (9-20) H 08/27/23 05:58
Creatinine 3.9 mg/dL (0.7-1.3) H 08/27/23 05:58
eGFR 14.59 08/27/23 05:58
Glucose 100 mg/dl (70-99) H 08/27/23 05:58
Calcium 8.5 mg/dl (8.4-10.2) 08/27/23 05:58
Albumin 4.3 g/dl (3.5-5.0) 08/25/23 13:40
Physical Exam
-
Vital Signs:
Vital Signs
Temp Pulse Resp BP Pulse Ox
98.2 F 73 20 137/96 100
08/27/23 08:00 08/27/23 08:00 08/27/23 08:00 08/27/23 08:00 08/27/23 08:00
[2023-08-27 13:47] VITALS: BP 113/51; BP 129/58; BP 142/63; PULSE 69; PULSE 74
[2023-08-27] MEDS: ProAmatine 10 MG PO ×2 (14:42→18:09)
--- NOTE | 2023-08-27 15:25 | CM ---
CM following re: d/c planning.
CM met with pt at bedside to complete IA.
Pt states he resides with in mobile home, [address].
He has a RW inside and a rollator for outside of the home.
No current VN, but history with [facility].
He goes to at [facility].
Pt states he drives, but kids recently took away the car from him.
Pt is agreeable to VN upon d/c.
Per therapy, recs for VN.
Pt is agreeable to use [facility] again.
Ref sent.
PCP is Dr. Palacios and pharmacy [facility] in [place].
Goal: home with [facility] VN.
[2023-08-27 15:49] VITALS: BP 134/52
[2023-08-27 18:17] LABS: Glucose - Point of Care 207 mg/dl (70-99)
[2023-08-27] MEDS: NOVOLOG FLEXPEN-LOW RESISTANCE 2 UNITS SC (18:27)
[2023-08-27] MEDS: ARICEPT 5 MG PO (21:54)
[2023-08-27] MEDS: LIPITOR 20 MG PO (21:54)
[2023-08-27 22:35] LABS: Glucose - Point of Care 146 mg/dl (70-99)
[2023-08-27 23:00] VITALS: BP 157/59
[2023-08-28 00:14] VITALS: BP 157/59
[2023-08-28] MEDS: SYNTHROID 100 MCG PO (05:57)
[2023-08-28 06:00] VITALS: BMI 23.4
[2023-08-28 07:57] LABS: Hemoglobin 11.8 g/dL (13.0-18.0); Mean Corp Hgb Conc. 34.7 g/dL (33.0-37.0); Mean Corpuscular Volume 100.9 fL (80.0-94.0); Mean Platelet Volume 10.8 fL (7.4-10.4); Platelet Count 142 10^3/uL (130-400); Red Blood Cell Count 3.37 10^6/uL (4.70-6.10); Red Cell Dist. Width 13.9 % (11.5-14.5)
[2023-08-28 08:11] LABS: Blood Urea Nitrogen 67 mg/dl (9-20); Calcium 8.7 mg/dl (8.4-10.2); Carbon Dioxide 28 mmol/L (22-30); Chloride 91 mmol/L (98-107); Estimated Creatinine Clearance 12 ml/min; Glucose 105 mg/dl (70-99); Potassium 5.9 mmol/L (3.5-5.1); Sodium 126 mmol/L (135-145); eGFR 11.37
[2023-08-28 08:21] LABS: Glucose - Point of Care 96 mg/dl (70-99)
[2023-08-28] MEDS: ProAmatine PO ×4 (08:26→16:06)
[2023-08-28] MEDS: NOVOLOG FLEXPEN-LOW RESISTANCE SC ×2 (08:26→18:24)
[2023-08-28 08:28] VITALS: BP 182/62
[2023-08-28] MEDS: HEPARIN 5000 UNITS SC ×2 (08:34→21:20)
[2023-08-28] MEDS: PLETAL 100 MG PO (08:34)
[2023-08-28] MEDS: MIRALAX 17 GRAMS PO (08:34)
[2023-08-28] MEDS: COLACE 100 MG PO ×2 (08:34→21:20)
[2023-08-28] MEDS: NEURONTIN 300 MG PO (08:34)
[2023-08-28] MEDS: SINEMET 25-100 1 TABLET PO ×2 (08:38→21:20)
[2023-08-28] MEDS: ZOLOFT 50 MG PO (08:38)
[2023-08-28] MEDS: NAMENDA 5 MG PO (08:38)
[2023-08-28] MEDS: PROTONIX 40 MG PO ×2 (08:38→21:20)
--- NOTE | 2023-08-28 09:25 | W.PN.HOSP.TC ---
Addendum entered and electronically signed by Luis Franklin MD 08/28/23 16:17:
Updated on phone 08/28
Total time spent to see the patient on the floor, examine the patient, review data and lab results, discuss treatment plan with patient, nursing staff around 51 minutes.
Addendum entered and electronically signed by Luis Franklin MD 08/28/23 14:03:
PT recommends home visiting nurses.
Neurology is agreeable to evaluating the patient today regarding his worsening weakness and his possible Parkinson's that his PCP prescribed Sinemet for.
Original Note:
Today's Communication/Plan
-
see bold
Assessment / Plan
Assessment / Plan
83-year-old male with history of CVA, HTN, HLD, pacemaker, dementia, NIDDM, dialysis M/W/FOR, did not go today, Parkinsonism (not officially diagnosed per family), presents for slurred speech since 4 a.m., fall yesterday due to leg weakness 'they
just give out.'
Treating with Valcyclovir for shingles diagnosed 2 weeks ago.� He is just now finishing his steroid taper and really does not refer pain to that area anymore.
�States 'I fell a couple of times, I just collapse.' Son and daughter in law at bedside state they saw him last week and then today he has a significant change in cognitive function, speech slurred, having trouble with fluency of thoughts.
�Awakened at 4:30 this a.m. to go to dialysis (he drives himself) and he 'couldn't even walk' due to weakness in legs and 'both my feet are numb.'
He has had worsening 'shakes' of arms and hands.� Although his prescription states he is to take Sinemet 3 times a day he has only been taking it twice a day his Sinemet dosing has been managed by his PCP mostly over the phone based on presentations
and description given to him over the phone.� Never been seen by a neurologist to make official diagnosis.� He also admits to stopping completely his levothyroxine dosing normal for the last year when asked why he did that he says 'I am stupid'
daughter at bedside acknowledges the patient's noncompliance to some of his medications also admits to the patient's spouse is his only other caregiver who is also inform them mostly sleeps during the day.� He is supposed to use a walker but most of
the time does not.
Change in mental status and recurrent falls/workup thus far consistent with significant autonomic dysfunction multifactorial/from ESRD/diabetes neuropathy/Parkinson's?/Orthostatic hypotension especially on dialysis days
-No focal abnormality on exam and head CT unremarkable
-Patient stopped taking any thyroid medication for the last year TSH 5.6, resumed 100 mcg dosage of Synthroid
-Macrocytic anemia noted but B12 and folate levels within normal limits here
-Possible neurologic diagnoses may be in relation to progressing Parkinson's as not properly treated/Will only be seen by neurology as outpatient to work this up
-Other possibility would be acute ischemic events not noted on CT imaging /His pacemaker is incompatible with MRI
-Other consideration would be ongoing peripheral neuropathy from longstanding diabetes/continue gabapentin/on muscle relaxant therapy with cyclobenzaprine which will be held/was probably on toxic levels of gabapentin as he was also taking Lyrica
-Check orthostatics suspect autonomic dysfunction given history of neuropathy, diabetes and end-stage renal disease/continue midodrine/add compression stockings
-Continue midodrine at higher dosages on dialysis days
-PT/OT eval recommending HH
Parkinson's disease
-Has been on Sinemet for years from his PCP
-Never had neurologic evaluation
-Requested consultation with neurology - they will not see the patient inpatient and would like to see as outpatient to address Parkinson's
-Continue on carbidopa levodopa 25-100 3 times daily
End-stage renal disease on hemodialysis
Hyponatremia
Hyperkalemia
-Monday/Monday/Monday schedule
-Appreciate nephrology input, due for dialysis today
Hypothyroidism
-Noncompliant to levothyroxine
-Restarted levothyroxine
Macrocytosis
-B12 and folate levels normal
Recent herpes zoster involving the right flank dermatome
-Has completed course of steroid therapy and Valtrex
-On inspection of the area seems to be fully scabbed over and no significant pain or neuropathy
Prior history of bladder tumor/resection
-Prior bilateral nephrectomies/prostatectomy
-Has no urine output
-On hemodialysis
Type 2 diabetes mellitus
-Medication management is weekly Trulicity
-Unavailable here will give sign scale coverage
-Hemoglobin A1c 6.6
Prior history of spinal stenosis
-Would be prudent to also obtain spine imaging
-Lumbar sacral spine films do show severe osteoarthritic changes
Again pacer incompatible with MRI
-Will need to see how he does with PT/OT modalities may need to workup neuropathy from his lumbar disease
Peripheral arterial disease
-Continue Pletal
DVT prophylaxis�subcu heparin
Full code
Physical Exam
General: No acute distress
HEENT: Normocephalic, Atraumatic, EOMI, MMM
Respiratory: Clear to Auscultation bilaterally
Cardiac: Normal S1/S2, Regular Rate and Rhythm
GI: Soft, Nontender, Nondistended, Normal Bowel Sounds
Extremities: No Clubbing, Cyanosis, or Edema
Neuro: Nonfocal/Grossly Intact
Anticipated Discharge: Within 24 hours
Subjective/Interval History
-
Date of Service: August 28, 2023
Patient reports feeling weak.
Objective Data
-
Labs:
Laboratory Results
08/28/23
07:30
WBC 6.0
Hgb 11.8 L
Hct 34.0 L
Plt Count 142
Sodium 126 L
Potassium 5.9 H
Chloride 91 L
Carbon Dioxide 28
BUN 67 H
Creatinine 4.8 H*
Glucose 105 H
Calcium 8.7
Vital Signs:
Vital Signs
Temp Pulse Resp BP Pulse Ox
97.8 F 61 20 182/62 99
08/27/23 23:00 08/27/23 23:00 08/27/23 23:00 08/28/23 08:28 08/27/23 23:00
I&O
08/27/23 08/28/23 08/29/23
06:59 06:59 06:59
Intake Total 720 / 720 480 / 480 480 / 480
Balance 720 / 720 480 / 480 480 / 480
[2023-08-28 10:16] VITALS: BP 84/40; BP 87/37; BP 96/38; PULSE 66; PULSE 68; PULSE 76
[2023-08-28] MEDS: PHOSLO PO (11:24)
[2023-08-28] MEDS: PHOSLO 1334 MG PO ×2 (11:24→21:29)
[2023-08-28] MEDS: ProAmatine 10 MG PO (11:29)
[2023-08-28 11:34] LABS: Glucose - Point of Care 246 mg/dl (70-99)
[2023-08-28] MEDS: NOVOLOG FLEXPEN-LOW RESISTANCE 2 UNITS SC (11:35)
--- NOTE | 2023-08-28 13:30 | CM ---
Addendum entered by Sera Pelaez 08/28/23 14:29:
IMM completed.
Addendum entered by Sera Pelaez 08/28/23 14:12:
Information on private caregivers provided.
Information on Neurologists at provided.
Information on Assisted living reviewed.
Spoke with Sabina from [facility] requested eval for G[facility] DESULFUR[facility]ER and SW.
for Hd today 4 pm.
Patient to be seen by Neuro prior to d/c.
Plan: home with [facility] MELO, HD M-W-
Family will transport.
[facility]

[facility]

Original Note:
Spoke with patient bedside, verbal permission to speak with [facility].
PT/OT recommending home with home care.
Patient known to [facility].
Family requesting information re private catregivers.
will provide brochures/handout.
Left VM for Daughter in law Dafne.
Plan: home with [facility] when stable.
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
[2023-08-28 15:05] VITALS: BP 149/56
[2023-08-28 15:39] LABS: HDL Cholesterol 84 mg/dl; LDL Cholesterol, Calculated 30 mg/dl; Total Cholesterol 147 mg/dl (50-199); Triglyceride 169 mg/dl (10-149); Very Low Density Lipoprotein 33 mg/dl (0-30)
[2023-08-28 17:54] LABS: Glucose - Point of Care 96 mg/dl (70-99)
[2023-08-28] MEDS: SINEMET 25-100 PO (18:24)
--- NOTE | 2023-08-28 19:17 | W.PN.NEPH.HD ---
Assessment
-
- resting comfortably on dialysis, no complaints
- UF 1.5L, BP tolerating well
Progress Note - Hemodialysis
-
Date of Service: August 28, 2023
Duration: 30 minutes and 3 hours
Potassium Bath: 3
Calcium Bath: 2.5
Opti-Dialyzer: 160
Ultrafiltration: Other
Blood Flow: 400
Dialysate Flow: 600
[2023-08-28 19:30] VITALS: BP 169/73
[2023-08-28] MEDS: ARICEPT 5 MG PO (21:20)
[2023-08-28] MEDS: LIPITOR 20 MG PO (21:20)
[2023-08-28] MEDS: ASPIR LOW (ENTERIC COATED) 81 MG PO (21:24)
[2023-08-28 21:26] LABS: Glucose - Point of Care 109 mg/dl (70-99)
[2023-08-28 23:00] VITALS: BP 120/52
[2023-08-29] VITALS (7 sets, daily range): BP systolic 89–147; BP diastolic 38–77; PULSE 61; BMI 23.1
[2023-08-29] MEDS: SYNTHROID 100 MCG PO (06:06)
[2023-08-29 07:23] LABS: Hemoglobin 11.5 g/dL (13.0-18.0); Mean Corp Hgb Conc. 34.8 g/dL (33.0-37.0); Mean Corpuscular Hgb 35.4 pg (27.0-31.0); Mean Corpuscular Volume 101.5 fL (80.0-94.0); Mean Platelet Volume 10.7 fL (7.4-10.4); Platelet Count 143 10^3/uL (130-400); Red Blood Cell Count 3.25 10^6/uL (4.70-6.10); Red Cell Dist. Width 14.7 % (11.5-14.5); White Blood Cell Count 6.1 10^3/uL (4.8-10.8)
[2023-08-29 07:51] LABS: Blood Urea Nitrogen 35 mg/dl (9-20); Calcium 8.8 mg/dl (8.4-10.2); Carbon Dioxide 35 mmol/L (22-30); Chloride 91 mmol/L (98-107); Creatine Phosphokinase 33 U/L (55-170); Estimated Creatinine Clearance 18 ml/min; Glucose 103 mg/dl (70-99); Magnesium 2.1 mg/dl (1.6-2.3); Phosphorus 3.8 mg/dl (2.5-4.5); Potassium 5.1 mmol/L (3.5-5.1); Sodium 129 mmol/L (135-145); eGFR 19.21
[2023-08-29 08:09] LABS: Glucose - Point of Care 98 mg/dl (70-99)
[2023-08-29] MEDS: NOVOLOG FLEXPEN-LOW RESISTANCE SC ×2 (08:20→11:54)
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
[2023-08-29] MEDS: ProAmatine PO (08:54)
[2023-08-29] MEDS: HEPARIN 5000 UNITS SC ×2 (08:55→19:48)
[2023-08-29] MEDS: NEURONTIN 300 MG PO (08:55)
[2023-08-29] MEDS: NAMENDA 5 MG PO (08:56)
[2023-08-29] MEDS: SINEMET 25-100 1 TABLET PO ×2 (08:57→22:19)
[2023-08-29] MEDS: PLETAL 100 MG PO (08:57)
[2023-08-29] MEDS: PHOSLO 1334 MG PO ×3 (08:57→17:55)
[2023-08-29] MEDS: ASPIR LOW (ENTERIC COATED) 81 MG PO (08:57)
[2023-08-29] MEDS: PROTONIX 40 MG PO ×2 (08:57→19:47)
[2023-08-29] MEDS: COLACE PO (09:02)
[2023-08-29] MEDS: MIRALAX PO (09:02)
--- NOTE | 2023-08-29 10:19 | W.PN.HOSP.TC ---
Today's Communication/Plan
-
see bold
Assessment / Plan
Assessment / Plan
83-year-old male with history of CVA, HTN, HLD, pacemaker, dementia, NIDDM, dialysis M/W/FOR, did not go today, Parkinsonism (not officially diagnosed per family), presents for slurred speech since 4 a.m., fall yesterday due to leg weakness 'they
just give out.'
Treating with Valcyclovir for shingles diagnosed 2 weeks ago.� He is just now finishing his steroid taper and really does not refer pain to that area anymore.
�States 'I fell a couple of times, I just collapse.' Son and daughter in law at bedside state they saw him last week and then today he has a significant change in cognitive function, speech slurred, having trouble with fluency of thoughts.
�Awakened at 4:30 this a.m. to go to dialysis (he drives himself) and he 'couldn't even walk' due to weakness in legs and 'both my feet are numb.'
He has had worsening 'shakes' of arms and hands.� Although his prescription states he is to take Sinemet 3 times a day he has only been taking it twice a day his Sinemet dosing has been managed by his PCP mostly over the phone based on presentations
and description given to him over the phone.� Never been seen by a neurologist to make official diagnosis.� He also admits to stopping completely his levothyroxine dosing normal for the last year when asked why he did that he says 'I am stupid'
daughter at bedside acknowledges the patient's noncompliance to some of his medications also admits to the patient's spouse is his only other caregiver who is also inform them mostly sleeps during the day.� He is supposed to use a walker but most of
the time does not.
Acute encephalopathy
Worsening weakness
-Neurology suspects acute CVA, pacer incompatible with MRI
-Repeat head CT negative for CVA, but patient could still have small stroke not seen
-T-spine CT shows chronic severe spondylosis, unchanged from prior
-Neurology recommends aspirin 81 mg daily, no driving
-PT recommends home health
Orthostatic hypotension, worse on dialysis days
-Sinemet can cause orthostatic hypotension
-Patient does not have Parkinson's disease, neurology recommends weaning off Sinemet by 0.5 tab every 3-5 days(can be done as OP)
-Continue midodrine at higher dosages on dialysis days, ALLISON stockings and consider abdominal binder when OOB for orthostasis.
End-stage renal disease on hemodialysis
Hyponatremia
Hyperkalemia
-Monday/Monday/Monday schedule
-Appreciate nephrology input, continue dialysis as per nephrology
-Hold sertraline
Hypothyroidism
-Noncompliant to levothyroxine
-Restarted levothyroxine
Macrocytosis
-B12 and folate levels normal
Recent herpes zoster involving the right flank dermatome
-Has completed course of steroid therapy and Valtrex
-On inspection of the area seems to be fully scabbed over and no significant pain or neuropathy
Prior history of bladder tumor/resection
-Prior bilateral nephrectomies/prostatectomy
-Has no urine output
-On hemodialysis
Type 2 diabetes mellitus
-Medication management is weekly Trulicity
-Unavailable here will give sign scale coverage
-Hemoglobin A1c 6.6
Prior history of spinal stenosis
-Would be prudent to also obtain spine imaging
-Lumbar sacral spine films do show severe osteoarthritic changes
-Again pacer incompatible with MRI
Peripheral arterial disease
-Continue Pletal
DVT prophylaxis�subcu heparin
Full code
Total time spent to see the patient on the floor, examine the patient, review data and lab results, discuss treatment plan with patient, nursing staff around 51 minutes.
Physical Exam
General: No acute distress
HEENT: Normocephalic, Atraumatic, EOMI, MMM
Respiratory: Clear to Auscultation bilaterally
Cardiac: Normal S1/S2, Regular Rate and Rhythm
GI: Soft, Nontender, Nondistended, Normal Bowel Sounds
Extremities: No Clubbing, Cyanosis, or Edema
Neuro: Nonfocal/Grossly Intact
Anticipated Discharge: Within 24 hours
Subjective/Interval History
-
Date of Service: August 29, 2023
Dysarthria improved. Has chronic left-sided weakness.
Objective Data
-
Labs:
Laboratory Results
08/29/23
06:59
WBC 6.1
Hgb 11.5 L
Hct 33.0 L
Plt Count 143
Sodium 129 L
Potassium 5.1
Chloride 91 L
Carbon Dioxide 35 H
BUN 35 H
Creatinine 3.1 H
Glucose 103 H
Calcium 8.8
Vital Signs:
Vital Signs
Temp Pulse Resp BP Pulse Ox
97.8 F 66 16 147/62 97
08/29/23 08:16 08/29/23 08:16 08/29/23 08:16 08/29/23 08:54 08/29/23 08:16
I&O
08/28/23 08/29/23 08/30/23
06:59 06:59 06:59
Intake Total 480 / 480 1140 / 1140
Balance 480 / 480 1140 / 1140
[2023-08-29 11:47] LABS: Glucose - Point of Care 136 mg/dl (70-99)
[2023-08-29] MEDS: ProAmatine 10 MG PO ×2 (12:05→16:55)
--- NOTE | 2023-08-29 12:34 | W.PN.NEPH.PH ---
Today's Communication / Plan
-
- HD tomorrow
Assessment/Plan
-
Impression:
ESRD MWF
Uncontrolled hypertension
Hyperkalemia
History of stroke
Dementia
Pacemaker
Diabetes
Hypotension on dialysis on manage
Anemia
Parkinson's
hx Bladder CA nwith cystectomy and nephrectomies, prostatectomy
AVF
Hypothyroid
History of coronary artery disease with multiple stenting procedure
Plan:
HD tomorrow
Blood pressure controlled at EDW
Midodrine for chronic hypotension
Continue phosphate binder therapy for hyperphos
-
-
Date of Service: August 29, 2023
CC / HPI / ROS
-
Chief Complaint:
End-stage renal disease
History of Present Illness:
Blood pressure controlled at dry weight
Maintained on midodrine for chronic hypotension
ESRD Monday
Review of Systems:
No chest pain or shortness of
Lower extremity weakness
Labs
-
Labs:
WBC 6.1 10^3/uL (4.8-10.8) 08/29/23 06:59
RBC 3.25 10^6/uL (4.70-6.10) L 08/29/23 06:59
Hgb 11.5 g/dL (13.0-18.0) L 08/29/23 06:59
Hct 33.0 % (39.0-52.0) L 08/29/23 06:59
Plt Count 143 10^3/uL (130-400) 08/29/23 06:59
Sodium 129 mmol/L (135-145) L 08/29/23 06:59
Potassium 5.1 mmol/L (3.5-5.1) 08/29/23 06:59
Chloride 91 mmol/L (98-107) L 08/29/23 06:59
Carbon Dioxide 35 mmol/L (22-30) H 08/29/23 06:59
BUN 35 mg/dl (9-20) H 08/29/23 06:59
Creatinine 3.1 mg/dL (0.7-1.3) H 08/29/23 06:59
eGFR 19.21 08/29/23 06:59
Glucose 103 mg/dl (70-99) H 08/29/23 06:59
Calcium 8.8 mg/dl (8.4-10.2) 08/29/23 06:59
Phosphorus 3.8 mg/dl (2.5-4.5) 08/29/23 06:59
Albumin 4.3 g/dl (3.5-5.0) 08/25/23 13:40
Physical Exam
-
Vital Signs:
Vital Signs
Temp Pulse Resp BP Pulse Ox
98.2 F 61 16 89/44 97
08/29/23 10:47 08/29/23 10:47 08/29/23 10:47 08/29/23 12:05 08/29/23 10:47
Cardiovascular:: Regular rate and rhythm
Respiratory:: Bilateral: CTA
Lung Excursion:: Normal
Abdomen:: Nontender and Soft
Bowel Sounds:: Normal
Extremity Edema:: +1: Bilateral:
Pham Catheter: No
--- NOTE | 2023-08-29 14:30 | PTOTSP ---
Speech/Language Evaluation
Motor speech WFL and patient 100% intelligible to an unfamiliar listener. Verbal expression and auditory comprehension WFL for tasks assessed.
SLUMS administered to screen cognition given concern for stroke. Patient scored 26/30 which for his level of education is below normal (27-30 is normal range for high school or greater education). Points were lost for delayed recall of words (1/5;
improved to 4/5 with categorical cues and 5/5 with categorical cue and binary choice).
Patient's score is in the range concerning for a mild neurocognitive disorder though this cannot be diagnosed by an SHEET METAL WORKER. Neurology following this admission. Patient shared concerns about difficulty with processing spoken directions and memory.
Recommend:
1. Consult to an SHEET METAL WORKER after D/C from the acute care level for further cognitive linguistic evaluation.
2. Supervision/assistance recommended with higher level cognitive tasks
--- NOTE | 2023-08-29 15:30 | CM ---
Spoke with son via phone.
Per son, plan is for d/c home tomorrow.
Discussed medication administration ideas, re packets from pharmacy, oma for phone.
Family will assist as needed at home.
Daughter will transport home.
Son requested new PCP information.
Family researching home care services.
Plan: home with [facility] and outpatient dialysis.
P
[2023-08-29 16:51] LABS: Glucose - Point of Care 268 mg/dl (70-99)
[2023-08-29] MEDS: SINEMET 25-100 0.5 TABLET PO (16:53)
[2023-08-29] MEDS: NOVOLOG FLEXPEN-LOW RESISTANCE 3 UNITS SC (17:55)
[2023-08-29] MEDS: COLACE 100 MG PO (19:47)
[2023-08-29 21:28] LABS: Glucose - Point of Care 141 mg/dl (70-99)
[2023-08-29] MEDS: LIPITOR 20 MG PO (22:19)
[2023-08-29] MEDS: ARICEPT 5 MG PO (22:19)
[2023-08-30 03:28] VITALS: BP 117/58
[2023-08-30 06:00] VITALS: BMI 23.1
[2023-08-30] MEDS: SYNTHROID 100 MCG PO (06:19)
[2023-08-30 07:55] VITALS: BP 110/57
[2023-08-30] MEDS: FLEXBUMIN 25% FOR HEMODIALYSIS 12.5 GRAMS IV ×2 (07:55→09:46)
[2023-08-30 08:00] LABS: Hematocrit 31.1 % (39.0-52.0); Hemoglobin 10.7 g/dL (13.0-18.0); Mean Corp Hgb Conc. 34.4 g/dL (33.0-37.0); Mean Corpuscular Hgb 35.1 pg (27.0-31.0); Mean Platelet Volume 10.3 fL (7.4-10.4); Platelet Count 139 10^3/uL (130-400); Red Blood Cell Count 3.05 10^6/uL (4.70-6.10); White Blood Cell Count 5.5 10^3/uL (4.8-10.8)
[2023-08-30] MEDS: MANNITOL 12.5 GRAMS IV ×2 (08:00→09:40)
[2023-08-30 08:05] LABS: Glucose - Point of Care 110 mg/dl (70-99)
[2023-08-30] MEDS: NOVOLOG FLEXPEN-LOW RESISTANCE SC (08:42)
[2023-08-30] MEDS: MIRALAX PO ×2 (08:44→08:52)
[2023-08-30] MEDS: ProAmatine 10 MG PO ×2 (08:44→12:57)
[2023-08-30] MEDS: ProAmatine 5 MG PO (08:44)
[2023-08-30] MEDS: PHOSLO 1334 MG PO ×2 (08:44→12:52)
[2023-08-30] MEDS: HEPARIN 5000 UNITS SC (08:45)
--- NOTE | 2023-08-30 08:46 | W.PN.NEPH.HD ---
Assessment
-
Patient seen on dialysis
Systolic blood pressure at 98 at current UF
Albumin and mannitol provided for blood pressure support on HD in addition to midodrine
Progress Note - Hemodialysis
-
Date of Service: August 30, 2023
Duration: 30 minutes and 3 hours
Potassium Bath: 2
Calcium Bath: 2.5
Opti-Dialyzer: 160
Ultrafiltration: Other (1kg)
Blood Flow: 400
Dialysate Flow: 600
Heparin: none
EPO: none
--- NOTE | 2023-08-30 08:47 | W.PN.HOSP.TC ---
Today's Communication/Plan
-
Discharge today
Assessment / Plan
Assessment / Plan
83-year-old male with history of CVA, HTN, HLD, pacemaker, dementia, NIDDM, dialysis M/W/FOR, did not go today, Parkinsonism (not officially diagnosed per family), presents for slurred speech since 4 a.m., fall yesterday due to leg weakness 'they
just give out.'
Treating with Valcyclovir for shingles diagnosed 2 weeks ago.� He is just now finishing his steroid taper and really does not refer pain to that area anymore.
�States 'I fell a couple of times, I just collapse.' Son and daughter in law at bedside state they saw him last week and then today he has a significant change in cognitive function, speech slurred, having trouble with fluency of thoughts.
�Awakened at 4:30 this a.m. to go to dialysis (he drives himself) and he 'couldn't even walk' due to weakness in legs and 'both my feet are numb.'
He has had worsening 'shakes' of arms and hands.� Although his prescription states he is to take Sinemet 3 times a day he has only been taking it twice a day his Sinemet dosing has been managed by his PCP mostly over the phone based on presentations
and description given to him over the phone.� Never been seen by a neurologist to make official diagnosis.� He also admits to stopping completely his levothyroxine dosing normal for the last year when asked why he did that he says 'I am stupid'
daughter at bedside acknowledges the patient's noncompliance to some of his medications also admits to the patient's spouse is his only other caregiver who is also inform them mostly sleeps during the day.� He is supposed to use a walker but most of
the time does not.
Acute on chronic encephalopathy (metabolic, neurodegenerative)
Worsening weakness
Probable small acute left subcortical stroke
-Neurology suspects acute CVA, pacer incompatible with MRI
-Repeat head CT negative for CVA, but patient could still have small stroke not seen
-T-spine CT shows chronic severe spondylosis, unchanged from prior
-Neurology recommends aspirin 81 mg daily, no driving
-LDL 30, continue statin, HgA1C 6.6
-Medically stable for discharge, PT recommends home health
-Recommend patient follows up with neurology in the office, as well as neuropsychiatry for cognitive testing
Orthostatic hypotension, worse on dialysis days
-Sinemet can cause orthostatic hypotension
-Patient does not have Parkinson's disease, neurology recommends weaning off Sinemet by 0.5 tab every 3-5 days(can be done as OP)
-Continue midodrine at higher dosages on dialysis days, ALLISON stockings and consider abdominal binder when OOB for orthostasis
-Patient denies lightheadedness or dizziness with standing
End-stage renal disease on hemodialysis
Hyponatremia
Hyperkalemia
-Monday/Monday/Monday schedule
-Appreciate nephrology input, continue dialysis as per nephrology
-Sertraline discontinued
Hypothyroidism
-Noncompliant to levothyroxine
-Restarted levothyroxine
Macrocytosis
-B12 and folate levels normal
Recent herpes zoster involving the right flank dermatome
-Has completed course of steroid therapy and Valtrex
-On inspection of the area seems to be fully scabbed over and no significant pain or neuropathy
Prior history of bladder tumor/resection
-Prior bilateral nephrectomies/prostatectomy
-Has no urine output
-On hemodialysis
Type 2 diabetes mellitus
-Medication management is weekly Trulicity
-Unavailable here will give sign scale coverage
-Hemoglobin A1c 6.6
Prior history of spinal stenosis
-Would be prudent to also obtain spine imaging
-Lumbar sacral spine films do show severe osteoarthritic changes
-Again pacer incompatible with MRI
Peripheral arterial disease
-Continue Pletal
DVT prophylaxis�subcu heparin
Full code
Physical Exam
General: No acute distress
HEENT: Normocephalic, Atraumatic, EOMI, MMM
Respiratory: Clear to Auscultation bilaterally
Cardiac: Normal S1/S2, Regular Rate and Rhythm
GI: Soft, Nontender, Nondistended, Normal Bowel Sounds
Extremities: No Clubbing, Cyanosis, or Edema
Neuro: Nonfocal/Grossly Intact
Anticipated Discharge: Today
Subjective/Interval History
-
Date of Service: August 30, 2023
Patient's dysarthria resolved.
Objective Data
-
Labs:
Laboratory Results
08/30/23
07:31
WBC 5.5
Hgb 10.7 L
Hct 31.1 L
Plt Count 139
Sodium Pending
Potassium Pending
Chloride Pending
Carbon Dioxide Pending
BUN Pending
Creatinine Pending
Glucose Pending
Calcium Pending
Vital Signs:
Vital Signs
Temp Pulse Resp BP Pulse Ox
98.1 F 61 16 106/54 99
08/30/23 03:28 08/30/23 03:28 08/30/23 03:28 08/30/23 08:44 08/30/23 03:28
I&O
08/29/23 08/30/23 08/31/23
06:59 06:59 06:59
Intake Total 1140 / 1140 720 / 720
Balance 1140 / 1140 720 / 720
[2023-08-30 08:48] LABS: Blood Urea Nitrogen 63 mg/dl (9-20); Calcium 9.1 mg/dl (8.4-10.2); Carbon Dioxide 30 mmol/L (22-30); Chloride 90 mmol/L (98-107); Estimated Creatinine Clearance 12 ml/min; Glucose 129 mg/dl (70-99); Potassium 5.3 mmol/L (3.5-5.1); Sodium 130 mmol/L (135-145); eGFR 12.28
[2023-08-30] MEDS: COLACE PO (08:52)
[2023-08-30 11:30] VITALS: BP 120/50
[2023-08-30 11:46] LABS: Glucose - Point of Care 177 mg/dl (70-99)
[2023-08-30 11:50] VITALS: BP 115/52; BP 120/50; BP 98/46; PULSE 72; PULSE 75
[2023-08-30] MEDS: NAMENDA 5 MG PO (12:52)
[2023-08-30] MEDS: SINEMET 25-100 1 TABLET PO (12:53)
[2023-08-30] MEDS: PROTONIX 40 MG PO (12:53)
[2023-08-30] MEDS: PLETAL 100 MG PO (12:53)
[2023-08-30] MEDS: ASPIR LOW (ENTERIC COATED) 81 MG PO (12:53)
[2023-08-30] MEDS: NEURONTIN 300 MG PO (12:53)
[2023-08-30] MEDS: NOVOLOG FLEXPEN-LOW RESISTANCE 1 UNITS SC (12:57)
--- NOTE | 2023-08-30 13:41 | W.DCSUMMARY ---
Discharge Summary
Discharge Data
Date of Admission: 08/25/23
Date of Discharge: 08/30/23
-
Pending Results: No
Hospital Course
Discharge diagnosis:
Probable small acute left subcortical stroke
Acute on chronic encephalopathy
Worsening weakness
Orthostatic hypotension, worse on dialysis days
Parkinson's disease ruled out by neurology
End-stage renal failure on dialysis
Hyponatremia
Hyperkalemia
Hypothyroidism, noncompliant to levothyroxine
Recent herpes zoster
Type 2 diabetes
Prior history of bladder tumor status postresection
History of spinal stenosis
Peripheral artery disease
Consults: Nephrology, neurology
Head CT 08/25:
No acute intracranial changes.
Repeat head CT 08/29:
No acute intracranial abnormality.
T Spine CT:
Chronic severe spondylosis at the T11-T12 level, stable from previous examinations. Similar findings at the C7-T1 level are new from previous examinations, and are also favored to be on the basis of severe spondylosis. Discitis-osteomyelitis would
be considered less likely but recommend clinical correlation for signs and symptoms of infection.
Echo:
�1.� Mild concentric left ventricular hypertrophy with preserved systolic
�function, EF 60%
�2.� Mitral annular calcification with trace mitral regurgitation and mildly
�dilated left atrium
�3.� Normal aortic valve
�4.� Right ventricular size and function, pacing wire identified, pulmonary
�artery systolic pressure 30 mmHg
Hospital course:
83-year-old male with a past medical history of end-stage renal failure on dialysis, orthostatic hypotension, CVA, chronic encephalopathy, and type 2 diabetes was admitted for transient dysarthria, worsening weakness, and increasing falls. Of note,
patient was prescribed Sinemet by his primary care doctor for possible Parkinson's disease.
Patient was seen in conjunction with neurology, who suspects that he had an acute stroke. He was unable to have an MRI because of his pacemaker. He had a head CAT scan on 08/25, then a repeat head CAT scan on 08/29, both of which were negative for
acute intracranial abnormality. Neurology states that the stroke may have been too small to show up on imaging. Patient's dysarthria resolved. Neurology recommends aspirin 81 mg daily. His LDL is at goal, he can continue his previous statin.
His hemoglobin A1c is also at goal at 6.6.
Patient has acute on chronic encephalopathy due to metabolic and neurodegenerative causes. Neurology states that patient does not have Parkinson's disease. Sinemet itself can cause orthostatic hypotension. Neurology recommends weaning off of
Sinemet. Patient is to decrease half a tablet every 3 days. Patient was continued on midodrine for his orthostatic hypotension, with extra doses on his dialysis days. He denies lightheadedness when getting up.
Patient also has hypothyroidism. He was noncompliant with taking his levothyroxine. He was counseled regarding the need to take this. His levothyroxine was resumed.
Patient was seen in conjunction with nephrology, and was continued on dialysis during his hospital stay here.
Patient was seen in conjunction with PT/OT/SPL. PT recommends home care. He is medically stable for discharge. He needs to follow-up with neurology in the office, as well as his primary care doctor in 1 week. He has also been referred to
Jeet Bustillo for neuropsychiatric testing.
Disposition: Home with home care
Discharge planning: Required 38 minutes
Discharge Plan
-
Patient Disposition: Home with Home Care
Discharge Diagnosis/Procedures: Probable stroke, Renal failure on dialysis, hypothyroidism, resolving herpes zoster, type 2 diabetes, history of bladder tumor with resection
Condition: Good
Diet: Other diet
Additional Diets: low potassium
Activity: As tolerated
Driving Restrictions: No driving
Other Services: VN and PT
Activity Restrictions/Additional Instructions:
You were seen by neurology, who thinks you may have had a small stroke. You are unable to get a brain MRI secondary to your pacemaker. Neurology says no driving.
You do not have Parkinson's disease. Neurology recommends you wean your Sinemet.
Starting 09/01/2023, decrease Sinemet by half a tab every 3 days.
You need outpatient cognitive testing. This can be done with Dr. Díaz for an apartment.
Your sodium was low, this can be caused by sertraline. We recommend you stop sertraline.
Continue your usual dialysis schedule.
Follow-up with your primary care doctor in 1 week.
Follow-up with neurology in the office in 3-4 weeks, and neuropsychiatry in 2-3 weeks.
Referrals:
Emily Green CRNP [Specified Professional Personl] - in three to four weeks
Milton Palacios DO [Family Provider] - in one week
Jeet Bustillo PSY [Specified Professional Personl] - in two to three weeks
Prescriptions:
New
aspirin 81 mg Tablet,Delayed Release (Dr/Ec)
81 mg PO DAILY Qty: 30 0RF
carbidopa-levodopa 25-100 mg Tablet
1 tab PO BID@0800,2200 Qty: 0 0RF
carbidopa-levodopa 25-100 mg Tablet
0.5 tab PO DAILY@1600 Qty: 0 0RF
polyethylene glycol 3350 17 gram/dose powder
17 g PO DAILY Qty: 510 0RF
Continued
donepezil 5 MG tablet
5 mg PO HS
pantoprazole 40 MG tablet,delayed release (DR/EC)
40 mg PO BID
midodrine 5 MG tablet
5 mg PO MOWEFR@0800
memantine 10 MG tablet
10 mg PO DAILY
Trulicity 1.5 MG/0.5 ML pen injector
1.5 mg SQ QWEEK
gabapentin 300 MG capsule
300 mg PO TID
cyclobenzaprine 10 mg Tablet
10 mg PO TID
cilostazol 50 mg Tablet
100 mg PO DAILY
simvastatin 40 mg Tablet
40 mg PO HS
calcium acetate(phosphat bind) 667 mg Capsule
1,334 mg PO TID
pregabalin 75 mg Capsule
75 mg PO BID
Patient Comments:
08/25/2023, pt. filled this med. on 08/21/2023 for 18 capsules according to PDMP.
levothyroxine 100 MCG tablet
100 mcg PO DAILY@07
lidocaine-prilocaine 2.5-2.5 % Cream
1 applic TOPICAL MOWEFR
clotrimazole-betamethasone 1-0.05 % Cream
1 applic TOPICAL TID
midodrine 10 mg Tablet
10 mg PO TID
Discontinued
valacyclovir 500 mg Tablet
500 mg PO BID
carbidopa-levodopa 25-100 mg Tablet
1 tab PO TID
acyclovir 5 % Ointment
1 applic TOPICAL TID
methylprednisolone 4 mg Tablets,Dose Pack
0 mg PO PER PKG DIR
Patient Comments:
08/25/2023, pt. filled this med. on 08/21/2023 for 6 days.
sertraline 50 MG tablet
50 mg PO DAILY
Discharge Orders:
Discharge Patient (As Directed); Ordered 08/30/23
Ordered By: Luis Franklin
Discharge Date and Time
Discharge Date/Time: 08/30/23 15:17
--- NOTE | 2023-08-30 14:54 | CM ---
Chart reviewed and patient is for discharge to home today, with Angela visiting nurses, outpatient HD.
Angela Dahl
[phone]
== END 2023-08-30 15:17 | disposition home health service (06) | DRG 64 ==
LOC: 4 WEST ACU 15:51
PROVIDERS: Registered Nurse; Student in an Organized Health Care Education/Training Program; ADMITTING PHYSICIAN Internal Medicine; ATTENDING PHYSICIAN Family Medicine; CONSULT PHYSICIAN Psychiatry & Neurology Neurology; CONSULT PHYSICIAN Specialist; EMERGENCY PHYSICIAN Emergency Medicine; FAMILY PHYSICIAN Family Medicine
PROC: 5A1D70Z Performance of Urinary Filtration, Intermittent, Less than 6 Hours Per Day (ICD-10-PCS; 2023-08-26)
DX: I63.9 Cerebral infarction, unspecified (principal); G93.41 Metabolic encephalopathy; N18.6 End stage renal disease; E87.1 Hypo-osmolality and hyponatremia; I13.2 Hypertensive heart and chronic kidney disease with heart failure and with stage 5 chronic kidney disease, or end stage renal disease; R53.1 Weakness; E87.5 Hyperkalemia; I95.89 Other hypotension; G20.C Parkinsonism, unspecified; I50.9 Heart failure, unspecified; R47.1 Dysarthria and anarthria; R29.6 Repeated falls; E78.00 Pure hypercholesterolemia, unspecified; E11.40 Type 2 diabetes mellitus with diabetic neuropathy, unspecified; B02.9 Zoster without complications; I25.10 Atherosclerotic heart disease of native coronary artery without angina pectoris; E11.22 Type 2 diabetes mellitus with diabetic chronic kidney disease; D75.89 Other specified diseases of blood and blood-forming organs; M48.00 Spinal stenosis, site unspecified; E11.51 Type 2 diabetes mellitus with diabetic peripheral angiopathy without gangrene; D53.9 Nutritional anemia, unspecified; E83.39 Other disorders of phosphorus metabolism; I95.1 Orthostatic hypotension; M47.9 Spondylosis, unspecified; I34.81 Nonrheumatic mitral (valve) annulus calcification; F03.90 Unspecified dementia, unspecified severity, without behavioral disturbance, psychotic disturbance, mood disturbance, and anxiety; M41.9 Scoliosis, unspecified; E03.9 Hypothyroidism, unspecified; Z86.73 Personal history of transient ischemic attack (TIA), and cerebral infarction without residual deficits; Z87.891 Personal history of nicotine dependence; Z79.4 Long term (current) use of insulin; Z99.2 Dependence on renal dialysis; Z90.5 Acquired absence of kidney; Z95.5 Presence of coronary angioplasty implant and graft; Z95.0 Presence of cardiac pacemaker; Z91.199 Patient's noncompliance with other medical treatment and regimen due to unspecified reason; Z85.51 Personal history of malignant neoplasm of bladder; Z79.890 Hormone replacement therapy; Z79.84 Long term (current) use of oral hypoglycemic drugs; Z79.02 Long term (current) use of antithrombotics/antiplatelets
CPT/HCPCS: 70450; 72100; 72128; 80048; 80053; 80061; 82550; 82607; 82746; 82962; 83036; 83540; 83550; 83735; 84100; 84439; 84443; 85025; 85027; 87070; 92523; 93005; 93306; 93880; 97162; 97166; 97530; 97535; 99285; G0257; P9047

== ENCOUNTER 2024-07-23 23:36 | Inpatient (IN) | payer MEDICARE, SELFPAY ==
[2024-07-23] VITALS (10 sets, daily range): BP systolic 123–134; BP diastolic 44–55; BMI 22.4
--- NOTE | 2024-07-23 20:20 | ED.GENMED ---
History of Present Illness
General
Chief Complaint: Weakness
Time Seen by Provider: 07/23/24 20:20
History of Present Illness
History of Present Illness:
TIME OF INITIAL ENCOUNTER: 8:20 PM
HPI: The patient had dialysis earlier today. At that time it was noted that he appeared very weak and staff wanted him to go to the hospital. However he ultimately wanted to go home. While at home he felt increasingly weak with increasing lower
extremity weakness. He has an associated cough. He does not make any urine as he states that his bladder/prostate/ureters/kidneys have been removed.
EXAM:
GENERAL: The patient is chronically ill in appearance, appears somewhat weak and debilitated
HEENT: Moist oral mucosa
CARDIOVASCULAR: No murmurs, normal heart rate, regular rhythm, No chest wall tenderness
PULMONARY: No respiratory distress, breath sounds are clear and equal
ABDOMEN: Soft with no peritoneal signs, no tenderness
NEUROLOGIC: Bilateral lower extremity weakness but is antigravity in all extremities, no coordination deficits
PSYCHIATRIC: Appropriate mental status, normal insight and judgement
EXTREMITIES: Nontender, no edema, moves all extremities equally, good thrill from his fistula in the proximal right upper extremity
SKIN: No rash, no lesions
NUMBER AND COMPLEXITY OF PROBLEMS ADDRESSED AT THE ENCOUNTER
� Chronic conditions affecting care: Dementia, CAD, high blood pressure, hyperlipidemia, CKD on dialysis, metastatic prostate cancer
� Acute Exacerbation and/or Progression of Chronic Illness: This is an acute problem
� Differential Diagnosis includes: Dehydration, electrolyte abnormality, progressive functional decline
AMOUNT AND/OR COMPLEXITY OF DATA TO BE REVIEWED AND ANALYZED
� I performed an independent evaluation of and my interpretation is:
EKG:
CT:
X-rays: Chest x-ray shows airspace disease at the right base
Laboratory Studies: White count 3.9, hemoglobin 9.8, lactic 1.6, COVID-19 positive, creatinine 3.0, potassium normal
Other:
� Review of other/old records: I reviewed records, records indicate that he has orthostatic hypotension that worsens on dialysis days
� Clinical information was obtained by an independent historian: EMS
� Prescriptions/Medications Considered but not given:
� Further testing considered but not performed:
RISK OF COMPLICATIONS AND/OR MORBIDITY OR MORTALITY OF PATIENT MANAGEMENT
� Social determinants of health affecting care:
� Discussion with other providers: Hospitalist, Dr. Warren for admission at 10:01 PM
� Escalation of care including admission/observation vs risk of discharge considered: The patient has a low-grade temp and is found to be COVID-positive. Lymphocytopenia noted. White count 3.9
ANY OTHER UPDATES:
Although patient has only minor respiratory complaints, I am concerned of his inability to ambulate and thrive at home. He is COVID-19 positive which I think is a contributing factor for his lower extremity weakness/weakness in general.
9:55 PM: Patient sats are okay. He was given 250 mL saline bolus. He was able to get up and stand but could barely take any steps. He is COVID-19 positive and chest x-ray shows airspace disease at the right side. I am concerned about his
comorbidities including CKD and his advanced age therefore I have asked hospitalist to keep him for further management.
Past History
Past History
ED Past Medical History: CAD, CHF, HTN, Hypercholesterolemia, IDDM and Renal failure (End-stage renal disease, dialysis dependent)
ED Past Surgical History: Cardiac (Cardiac cath with stents, Pacemaker) and Urological (Bladder and kidneys removed due to CA, Prostatectomy)
Social History
Tobacco: Former smoker
Alcohol: None
Personal:
Living: with family
Employment: Retired
Family History
Family History: Other (Noncontributory)
Phy Exam
Physical Exam
Physical Exam:
See HPI
Course
Orders/Labs/Results
Orders:
Orders
07/23/24 20:28
0.9% Sodium Chloride 250 ml [Nss] 250 ml IV BOLUS
CR Chest - 2 Views Urgent
Comment:
Reason For Exam: cough low grade temp
07/23/24 20:33
Acetaminophen [Tylenol] 650 mg PO NOW STA
07/23/24 20:54
COVID-19 Antigen Urgent
Source: Nasal Swab
Complete Blood Count/With Diff Urgent
Comprehensive Metabolic Panel Urgent
Lactic Acid Q4H
Comment: CANCEL 2nd LACTIC ACID IF 1st LACTIC ACID IS LESS THAN 2
TSH Reflex To Free T4 Urgent
Blood Culture Q30M
HUAN Source: Blood/Venous
Specimen Description:
Influenza A+B Rapid Molecular Urgent
HUAN Source: Nasal Swab
Specimen Description:
07/23/24 21:26
Blood Culture Q30M
HUAN Source: Blood/Venous
Specimen Description:
07/23/24 22:47
Admit/Transfer Patient As Directed
Co-Sign Provider:
Level of Care: Inpatient admission
Assign to:: Medical/Surgical
Physician / Group: aebamiro
Diagnosis: acute COVID infection
Reason for Hospitalization: acute COVID infection
Expected length of stay greater than two midnights?: Yes
ELOS- Estimated Length of Stay in days: 3
I certify the patient meets the requirements for IP care: Yes
07/23/24 22:48
PRN Pain Medication Management As Directed
May give lesser potent ordered pain med per pt: Yes
preference::
Protocol:: Medication orders for pain may be administered in a
manner that supports deferring to patient preference
when the pt is:
- Requesting an ordered lesser potent pain medication.
Least to most potent pain medications are defined
as: acetaminophen < NSAID < tramadol < opioids
(morphine, oxycodone, hydromorphone).
- Requesting a lesser dose of the same medication IF
ORDERED.
- Requesting a less intrusive route of administration
if both routes are prescribed by the provider (PO <
IV).
07/23/24 22:49
Code Status As Directed
Resuscitation Status: Full Code
07/24/24 05:44
Acetaminophen [Tylenol] 650 mg PO Q4HPRN PRN
Albuterol [ProAIR HFA INHALER] 2 puff INH R Q4HPRN PRN
Dextrose 50%-Water [Dextrose 50% Syringe] 12.5 grams IV Q00BPZM PRN
Glucagon [GlucaGen] 1 mg IM PRN PRN
07/24/24 05:44
Consult Notification Routine
Specialty to Notify: Nephrology
NEPHROLOGY CONSULT Routine
Consulting Provider: Jorje Hansen V.
Was physician already notified: No
Reason for consult: ESRD on dialysis.
Activity As Directed
Activity Level: Out of Bed-Early Mobility
Bedside Glucose Monitoring As Directed
Frequency: AC&HS
Additional Instructions:: Change to q6h if pt on TPN, tube feeding or not eating
Intake/ Output As Directed
Frequency: Per unit guidelines
Precautions As Directed
Type of Precautions: Novel Respiratory
Vital Signs As Directed
Frequency: Per unit guidelines
Weight As Directed
Frequency: Once
Comment: on admission
Ot Eval And Treat Routine
Pt Eval And Treat Routine
Activity Level: As Tolerated
DX Deep Vein Thrombosis Video Routine
07/24/24 Breakfast
1800 calorie (15 carb) Diabetic
At Your Request: Full Participation
07/24/24 06:25
Basic Metabolic Panel IN AM
Complete Blood Count/With Diff IN AM
Glycohemoglobin (HgbA1c) IN AM
07/24/24 07:00
Levothyroxine [Synthroid] 100 mcg PO DAILY@0600
Nirmatrelvir/Ritonavir [Paxlovid 150-100 mg Dose Pack] 1 dose PO BID
07/24/24 07:30
Insulin Aspart Corrective Low [Novolog Flexpen-Low Resistance] See Protocol SC AC
07/24/24 08:00
Aspirin Low Dose EC [Aspir Low (Enteric Coated)] 81 mg PO DAILY
Cilostazol [Pletal] 50 mg PO DAILY
Gabapentin [Neurontin] 300 mg PO BID
Guaifenesin [Mucinex] 600 mg PO Q12
Heparin 5,000 units SC Q8
Midodrine [ProAmatine] 10 mg PO TID @ 0800,1200,1700
07/24/24 16:00
Pantoprazole [Protonix] 40 mg PO DAILY@1600
07/24/24 22:00
Cyclobenzaprine HCl [Flexeril] 10 mg PO HS
Donepezil HCl [Aricept] 10 mg PO HS
Abnormal Lab Results
07/23/24
20:54
WBC 3.9 L 10^3/uL
(4.8-10.8)
RBC 2.96 L 10^6/uL
(4.70-6.10)
Hgb 9.8 L g/dL
(13.0-18.0)
Hct 31.0 L %
(39.0-52.0)
MCV 104.7 H fL
(80.0-94.0)
MCH 33.1 H pg
(27.0-31.0)
MCHC 31.6 L g/dL
(33.0-37.0)
RDW 15.5 H %
(11.5-14.5)
Plt Count 77 L 10^3/uL
(130-400)
MPV 11.7 H fL
(7.4-10.4)
Absolute Lymphs (auto) 0.4 L 10^3/uL
(1.2-3.4)
Neutrophils % 77.5 H %
(42.2-75.2)
Lymphocytes % 10.2 L %
(20.5-51.1)
Monocytes % 9.9 H %
(1.7-9.3)
Creatinine 3.0 H mg/dL
(0.7-1.3)
Glucose 169 H mg/dl
(70-99)
Total Protein 5.9 L g/dl
(6.3-8.2)
SARS-CoV-2 Antigen Positive A
(Negative)
07/23/24 20:54
07/23/24 20:54
Vital Signs
Initial and Last Documented VS:
Initial Vital Signs
BP
134/44
07/23/24 20:15
Last Documented Vital Signs
Temp Pulse Resp BP Pulse Ox
36.8 C 70 20 141/58 92
07/24/24 14:30 07/24/24 14:30 07/24/24 11:42 07/24/24 14:30 07/24/24 15:20
*Critical Care Note
Total Time (30-74mins, 75-104mins- exclusive of procedures): Not Applicable
ED Attending Note
-
Portions of this chart may have been created with voice recognition software.� Occasional wrong word or��sound alike� substitutions may have occurred due to the inherent limitations of voice recognition software.
Discharge Plan
Departure
Patient Disposition: Admit
Date of Disposition: 07/23/24
Time of Disposition: 22:01
Presentation/result/management discussed w/ accepting MD/DO: Hospitalist
Discharge Problem:
Ambulatory dysfunction, COVID-19
Interventions
Interventions:
*Risk Screen - Suicide Last Done: 07/23/24 20:17
*General Assessment Last Done: 07/23/24 20:17
*Neglect/Abuse Screening Last Done: 07/23/24 20:17
ED- Fall Risk Assessment Last Done: 07/24/24 08:39
*ED COVID-19 Vaccine History Last Done: 07/23/24 20:29
*Nursing Disposition Last Done: 07/24/24 15:20
ED- Cardiac Assessment Last Done: 07/24/24 08:39
ED- Neurological Assessment Last Done: 07/24/24 08:39
ED- Pulmonary Assessment Last Done: 07/24/24 08:39
Discharge Date and Time
Discharge Date/Time: 07/24/24 15:26
[2024-07-23] MEDS: NSS 250 IV (21:02)
[2024-07-23 21:12] LABS: % Basophils 0.8 % (0-2); % Eosinophils 1.3 % (0-6); % Immature Granulocytes 0.3 % (0-0.5); % Lymphocytes 10.2 % (20.5-51.1); % Monocytes 9.9 % (1.7-9.3); % Neutrophils 77.5 % (42.2-75.2); Absolute Eosinophils 0.1 10^3/uL (0-0.7); Absolute Lymphocytes 0.4 10^3/uL (1.2-3.4); Absolute Monocytes 0.4 10^3/uL (0.1-0.6); Hemoglobin 9.8 g/dL (13.0-18.0); Mean Corp Hgb Conc. 31.6 g/dL (33.0-37.0); Mean Corpuscular Hgb 33.1 pg (27.0-31.0); Mean Corpuscular Volume 104.7 fL (80.0-94.0); Nucleated Red Blood Cells % 0 % (-); Red Blood Cell Count 2.96 10^6/uL (4.70-6.10); Red Cell Dist. Width 15.5 % (11.5-14.5); White Blood Cell Count 3.9 10^3/uL (4.8-10.8)
[2024-07-23 21:20] LABS: Lactic Acid 1.6 mmol/L (0.7-2.0)
[2024-07-23] MEDS: TYLENOL 650 MG PO (21:23)
[2024-07-23 21:29] LABS: ALT (SGPT) 14 U/L (0-50); AST (SGOT) 35 U/L (17-59); Albumin 3.6 g/dl (3.5-5.0); Alkaline Phosphatase 70 U/L (38-126); Blood Urea Nitrogen 17 mg/dl (9-20); Calcium 8.7 mg/dl (8.4-10.2); Carbon Dioxide 28 mmol/L (22-30); Chloride 101 mmol/L (98-107); Estimated Creatinine Clearance 18 ml/min; Glucose 169 mg/dl (70-99); Potassium 4.2 mmol/L (3.5-5.1); Sodium 136 mmol/L (135-145); Total Bilirubin 0.6 mg/dl (0.2-1.3); Total Protein 5.9 g/dl (6.3-8.2); eGFR 19.86
[2024-07-23 21:31] LABS: Mean Platelet Volume 11.7 fL (7.4-10.4); Platelet Count 77 10^3/uL (130-400)
[2024-07-23 21:32] LABS: COVID-19 Antigen Positive (Negative)
[2024-07-23 21:59] LABS: TSH Reflex To Free T4 1.59 uIU/ml (0.47-4.68)
--- NOTE | 2024-07-23 22:22 | HPS.HSE ---
Family Physician
-
Family Physician: Dong Osorio
Chief Complaint
-
congestion
cough
generalized weakness.
History of Present Illness
84-year-old with past medical history for end-stage renal disease on dialysis Monday, bladder urethral cancer, GERD, TIA, hyperlipidemia, diabetes, restless leg syndrome, hypothyroidism is with congestion, cough for past 3 days .
Patient stated short of breath worse with exertion. Nonproductive cough . Denied any fever .patient stated chills. Patient denied headache or dizziness or syncope ., nausea, vomiting, diarrhea. Patient does not make any urine output . Patient
was getting dialysis today when he felt very cold and chills . After the dialysis session patient felt very weak and tired . Patient was having trouble walking.
upon arrival he was tested positive for COVID.. blood culture sent from ER. received Tylenol for fever in ER. admitting for further management.
Medical History
Past Medical History
Past Medical History: Reports Other
Additional Past Medical History:
Bladder or urethral cancer
Back injury
GERD
TIA
Hyperlipidemia
Heart attack
Sleep apnea
Type 2 diabetes
Restless leg syndrome
Hypothyroidism
Past Surgical History: Reports Other
Additional Past Surgical History:
Bladder and kidney removal
Laminectomy
Social History
Tobacco: Non-smoker
Alcohol: None
Drug: None
Living: With Family
Family History
Family History: Not pertinent
Allergies / Home Medications
Allergies reflects when Allergies were last updated in [employer].
Home Medications with original date entered in [employer]
Allergy/Medication List:
Allergies
Allergy/AdvReac Type Severity Reaction Status Date / Time
No Known Allergies Allergy Verified 08/25/23 11:54
Home Medications
pantoprazole 40 mg tablet,delayed release 40 mg PO DAILY@1600 Gastrointestinal Issue 07/15/16
dulaglutide 1.5 mg/0.5 mL subcutaneous pen injector (Trulicity) 1.5 mg SQ MO Diabetes 07/16/19
gabapentin 300 mg capsule 300 mg PO BID Pain 07/16/19
cilostazol 50 mg tablet 50 mg PO DAILY Blood Clot Prevention/Tx 08/25/23
clotrimazole-betamethasone 1 %-0.05 % topical cream 1 applic topical DAILYPRN PRN buttocks rash 08/25/23
cyclobenzaprine 10 mg tablet 10 mg PO HS Muscle Spasms 08/25/23
levothyroxine 100 mcg tablet 100 mcg PO DAILY@07 Thyroid 08/25/23
lidocaine-prilocaine 2.5 %-2.5 % topical cream 1 applic topical TUTHSA Pain 08/25/23
midodrine 10 mg tablet 10 mg PO TID Blood Pressure 08/25/23
simvastatin 40 mg tablet 40 mg PO HS High Cholesterol 08/25/23
aspirin 81 mg tablet,delayed release 81 mg PO DAILY #30 tabs 08/30/23
acetaminophen 500 mg tablet (Tylenol Extra Strength) 1,000 mg PO Q6HPRN PRN mild pain 07/23/24
donepezil 10 mg tablet 10 mg PO HS 07/23/24
Review of Systems
-
Constitutional: Reports Fatigue and Chills
EENT: Reports Runny Nose
Respiratory: Reports Trouble Breathing
Cardiac: Reports No Symptoms
Abdomen/GI: Reports No Symptoms
: Reports No Symptoms
Musculoskeletal: Reports No Symptoms
Skin: Reports No Symptoms
Neurological: Reports Weakness
Endocrine: Reports No Symptoms
Hematologic/Lymphatic: Reports No Symptoms
Psych: Reports No Symptoms
Physical Exam
Vital Signs
Vital Signs
Temp Pulse Resp BP Pulse Ox
100.5 F H 66 17 134/44 96
07/23/24 20:17 07/23/24 20:30 07/23/24 20:30 07/23/24 20:17 07/23/24 20:29
Physical Exam
General: Well Developed, Well Nourished and No Apparent Distress
HEENT: NormoCephalic, Moist mucous membranes and Atraumatic
Respiratory: Clear
Cardiac: S1/S2 and Regular Rhythm; No Murmur or Rub
GI: Soft, Non Tender, Non Distended and Normal Bowel Sounds; No Organomegaly
Rectal: Deferred by Provider
Musculoskeletal: No Clubbing, No Cyanosis and No Edema
Skin: No Rash
Neuro: AO x 3 and Nonfocal/grossly intact
Psych: Calm
Laboratory Results
-
07/23/24 20:54
07/23/24 20:54
Laboratory Results
Lactic Acid 1.6 mmol/L (0.7-2.0) 07/23/24 20:54
Total Bilirubin 0.6 mg/dl (0.2-1.3) 07/23/24 20:54
AST 35 U/L (17-59) 07/23/24 20:54
ALT 14 U/L (0-50) 07/23/24 20:54
Alkaline Phosphatase 70 U/L (38-126) 07/23/24 20:54
Data Reviewed
-
Diagnostic Radiology: Report Reviewed by me
Lab Data: Labs Reviewed by me
Impression/Plan
-
# Ambulatory dysfunction generalized weakness likely due to acute COVID infection
-PT/OT consulted
-Chest x-ray with impression of There is moderate pleural parenchymal airspace disease at the right lung base consistent with right sided pleural effusion with underlying pneumonia versus atelectasis. There is mild pleural parenchymal airspace
disease left lung base consistent with small pleural effusion with underlying pneumonia versus atelectasis
-Blood culture sent from ER
-Mucinex as needed for cough
-Consider supplemental oxygen to keep sat>92
-paxlovid
# Pancytopenia likely due to viral infection
-WBCs 3.9, hemoglobin 9.8, platelets 77
-Continue to monitor
# End-stage renal disease on dialysis
-Creatinine 3.0
-On dialysis Monday
-nephrology consulted
#Orthostatic hypotension
-Midodrine continued
# GERD
-PPI continued
# Hyperlipidemia
-Statin continued
#Hypothyroidism
-levothyroxine
#Prior history of bladder tumor/resection
-Prior bilateral nephrectomies/prostatectomy
-Has no urine output
-On hemodialysis
Type 2 diabetes mellitus
-Medication management is weekly Trulicity
-Sliding scale
-CHO diet
Prior history of spinal stenosis
-Cyclobenzaprine continued for muscle spasms
-Gabapentin continued
#Peripheral arterial disease
-Continue Pletal
DVT prophylaxis�subcu heparin
Full code
--- NOTE | 2024-07-23 23:01 | W.PN.UPDATE ---
Update Note
Progress Note Update
Patient seen in conjunction with NILSON. I agree with the history and physical and concur with the assessment and plan.
This is a 84 y.o. male with past medical history significant for CVA, HTN, HLD, pacemaker, dementia, hypothyroid, NIDDM, ESRD on HD T/Th/Sat presenting to ED from home after HD with weakness. Patient reports 3 days of sinus, nasal and chest
congestion. Non-productive cough occasionally. After dialysis he went home and felt weak. After sitting on the floor to light his fireplace he was unable to get up. Had to call police to help him up. After family notified they decided to bring
him to ED.
In the emergency department he had a temp 100.5, percent saturation was 96%, blood pressure 134/50 with a pulse of 62. His COVID test was positive. Chest x-ray shows moderate small bilateral pleural effusions with possible pleural parenchymal
opacities. CBC was unremarkable except for a platelet count of 77. Electrolytes consistent with postdialysis labs showed nothing acute. TSH was within the normal range.
A&P
77 y.o with symptomatic COVID infection with cough, weakness, low grade temps. Not hypoxic and ESRD.
COVID infection
- admit to med/surg
- paxlovid, pharmacy to dose
- supportive care
- if requiring oxygen can start dexamethasone
- blood cx sent from ED, doubt systemic infection.
- alert and oriented for me.
- pt eval
ESRD -
- HD T/Th/Sat, consult nephrology
- renal diabetic diet
DM II
- sliding scale insulin
DVT - heparin sq
Code status - Full Code
[2024-07-24] VITALS (12 sets, daily range): BP systolic 130–141; BP diastolic 51–61; PULSE 65; O2SAT 91
[2024-07-24 06:33] LABS: Glucose - Point of Care 140 mg/dl (70-99)
[2024-07-24 06:52] LABS: % Basophils 0.8 % (0-2); % Eosinophils 3.5 % (0-6); % Immature Granulocytes 0.3 % (0-0.5); % Lymphocytes 14.2 % (20.5-51.1); % Monocytes 12.3 % (1.7-9.3); % Neutrophils 68.9 % (42.2-75.2); Absolute Eosinophils 0.1 10^3/uL (0-0.7); Absolute Lymphocytes 0.5 10^3/uL (1.2-3.4); Absolute Monocytes 0.5 10^3/uL (0.1-0.6); Absolute Neutrophils 2.5 10^3/uL (1.4-6.5); Hematocrit 30.8 % (39.0-52.0); Hemoglobin 9.6 g/dL (13.0-18.0); Mean Corp Hgb Conc. 31.2 g/dL (33.0-37.0); Mean Corpuscular Hgb 32.9 pg (27.0-31.0); Mean Corpuscular Volume 105.5 fL (80.0-94.0); Mean Platelet Volume 11.5 fL (7.4-10.4); Nucleated Red Blood Cells % 0 % (-); Platelet Count 78 10^3/uL (130-400); Red Blood Cell Count 2.92 10^6/uL (4.70-6.10); Red Cell Dist. Width 15.6 % (11.5-14.5); White Blood Cell Count 3.7 10^3/uL (4.8-10.8)
[2024-07-24 07:12] LABS: Blood Urea Nitrogen 22 mg/dl (9-20); Calcium 8.4 mg/dl (8.4-10.2); Carbon Dioxide 28 mmol/L (22-30); Chloride 102 mmol/L (98-107); Estimated Creatinine Clearance 16 ml/min; Glucose 137 mg/dl (70-99); Potassium 4.5 mmol/L (3.5-5.1); Sodium 137 mmol/L (135-145); eGFR 17.71
[2024-07-24] MEDS: NEURONTIN 300 MG PO (08:06)
[2024-07-24 08:07] LABS: Glucose - Point of Care 169 mg/dl (70-99)
[2024-07-24] MEDS: ProAmatine 10 MG PO ×2 (08:07→11:45)
[2024-07-24] MEDS: PAXLOVID 150-100 MG DOSE PACK 1 DOSE PO (08:07)
[2024-07-24] MEDS: ASPIR LOW (ENTERIC COATED) 81 MG PO (08:07)
[2024-07-24] MEDS: SYNTHROID 100 MCG PO (08:07)
[2024-07-24] MEDS: MUCINEX 600 MG PO (08:07)
[2024-07-24] MEDS: PLETAL 50 MG PO (08:08)
[2024-07-24] MEDS: HEPARIN 5000 UNITS SC (08:08)
[2024-07-24] MEDS: NOVOLOG FLEXPEN-LOW RESISTANCE 1 UNITS SC ×2 (08:09→11:44)
--- NOTE | 2024-07-24 08:36 | EDRN ---
@ 0800 pt medicated per sep. pt [id number]. [facility]. updated on plan of care. awaiting tray from nutrition.
[2024-07-24 09:03] LABS: Glycohemoglobin (HgbA1c) 5.1 % (4.0-5.6)
[2024-07-24 11:48] LABS: Glucose - Point of Care 161 mg/dl (70-99)
--- NOTE | 2024-07-24 12:48 | CM ---
Addendum entered by Laura [facility] 07/24/24 15:09:
DC paperwork faxed to Angela Snyder, fannie Florentino [phone]
Addendum entered by Laura [facility] 07/24/24 13:10:
Nursing will provide incentive spirometer
Original Note:
Cm spoke wth pt as he is on COVID precautions
Pt resides with spouse in a in a one story mobile home
He ambulates with a WW indoors and rollator in the community
Hx with [facility]
He attends [facility] Tues/Thr/Sat
Utilizes [facility] for transport
PCP- Dong Osorio
rx- [facility]
Call with [employer] [phone]
Able to reumse HD being COVID+
Call with [employer]- cannot transport until 5 days post symptom free
Update to pt
Plan for home with Angela ALEJO- referral made via [facility]
His DIL/Deann will transport home
His spouse/Ashley will transport to HD
Anticipate dc home later today per Dr. Mitchell
Discharge Disposition- home with Angela [facility] and [facility] outpt HD
Angela fax-[phone]
--- NOTE | 2024-07-24 13:08 | W.PN.HOSP.TC ---
Today's Communication/Plan
-
Paxlovid for 5-day course
Incentive spirometer
Likely discharge later
Assessment / Plan
Assessment / Plan
# Ambulatory dysfunction generalized weakness likely due to acute COVID infection
-No hypoxemia throughout his time here
-Evaluated by PT who is recommending home with PT
-Chest x-ray with likely atelectasis at the bases bilaterally
-Blood culture sent from ER, low suspicion for bacterial infection
-Mucinex and benzonatate as needed for cough
-paxlovid to complete 5-day course
#Pancytopenia
-WBCs 3.9, hemoglobin 9.8, platelets 77
-Suspect multifactorial cause; chronic anemia, leukopenia and thrombocytopenia due to viral infection
#End-stage renal disease on dialysis
-Creatinine 3.3
-On dialysis Monday
-nephrology consulted
#Orthostatic hypotension
-Midodrine continued
#GERD
-PPI continued
#Hyperlipidemia
-Statin continued
#Hypothyroidism
-levothyroxine
#Prior history of bladder tumor/resection
-Prior bilateral nephrectomies/prostatectomy
-Has no urine output
-On hemodialysis as above
#Type 2 diabetes mellitus
-Medication management is weekly Trulicity
-Sliding scale
-CHO diet
#Prior history of spinal stenosis
-Cyclobenzaprine continued for muscle spasms
-Gabapentin continued
#Peripheral arterial disease
-Continue Pletal
DVT prophylaxis�subcu heparin
Full code
Anticipated Discharge: Within 24 hours
Subjective/Interval History
-
Date of Service: July 24, 2024
Seen and examined at the bedside. No acute events reported overnight. AFVSS on room air this morning
He did have low-grade fever at 100.5 �F on arrival, no fevers overnight. States he had some exertional dyspnea which has been present chronically.
Denies any acute complaint
Objective Data
-
Labs:
Laboratory Results
07/24/24
06:25
WBC 3.7 L
Hgb 9.6 L
Hct 30.8 L
Plt Count 78 L
Sodium 137
Potassium 4.5
Chloride 102
Carbon Dioxide 28
BUN 22 H
Creatinine 3.3 H
Glucose 137 H
Calcium 8.4
Vital Signs:
Vital Signs
Temp Pulse Resp BP Pulse Ox
98.2 F 73 20 139/51 91
07/24/24 07:39 07/24/24 11:42 07/24/24 11:42 07/24/24 11:42 07/24/24 11:42
Review of Systems
-
History Source: Patient
All other systems: Reviewed and negative
Physical Exam
-
General: Well Developed, Well Nourished, No Apparent Distress and Comfortable
HEENT: Normocephalic, Atraumatic and Moist Mucous Membranes
Respiratory: Clear to Auscultation and Non Labored Respirations; Negative Accessory Resp Muscle Use
Cardiac: Regular Rhythm and S1/S2; Negative Murmur, Rub or Gallop
GI: Soft, Nontender, Nondistended and Normal Bowel Sounds
Musculoskeletal: No Clubbing, No Cyanosis and No Edema
Skin: Warm and Dry; Negative Rash
Neuro: AO x 3, Nonfocal/Grossly Intact and Other (Right eye droop, reversible and chronic)
Psych: Calm
Data Reviewed
-
Labs: Labs Reviewed by me and Discussed with Patient
--- NOTE | 2024-07-24 13:58 | EDRN ---
delay in note d.t pt care.... pt was seen by MD Mitchell and agreeable for d.c. pt able to go to regularly scheduled dialysis, confirmed by CM. MD Mitchell paged in regards to a message pt got from pharmacy regarding his meds and insurance. pt given
incentive spirometer and demonstrated proper use.
--- NOTE | 2024-07-24 15:00 | PTCARENOTE ---
Rn flow Called to [facility] patient's DIL and reviewed discharge instructions. Spoke with case manger who states that patient needs to be 5 days symptom free to ride the transport.
--- NOTE | 2024-07-25 17:48 | W.DCSUMMARY ---
Discharge Summary
Discharge Data
Date of Admission: 07/23/24
Date of Discharge: 07/24/24
-
Pending Results: No
Hospital Course
84-year-old male with CAD, ESRD on dialysis, type 2 diabetes with neuropathy, history of CVA, H/O urothelial cancer s/p nephrectomy and bladder resection that presented to the hospital with weakness, felt as if he was unable to ambulate as well as
previously. Upon arrival to the ED was found to have infection with COVID. Workup for bacterial infections unremarkable. No neurological deficits or other signs concerning for CVA. Was evaluated by physical therapist who recommended home with
physical therapy. Discussed with patient, he felt well enough for home. Was provided course of renally dosed Paxlovid to complete full 5 days. Recommended follow-up with his family physician. Advised him to come back to the ED if he develops
strokelike symptoms, fever >102 �F
Discharge Plan
-
Patient Disposition: Home with Home Care
Discharge Diagnosis/Procedures: Weakness
COVID infection
Atelectasis
Condition: Fair
Diet: Other diet
Additional Diets: Renal diet
Activity: As tolerated
Driving Restrictions: Not until seen by your Dr
Other Services: PT and OT
Activity Restrictions/Additional Instructions:
After discharge from the hospital schedule follow-up appointment with your family doctor. Should be seen in office within 1 to 2 weeks of discharge
Use incentive spirometer every hour as directed. Your chest x-ray showed signs of atelectasis (compression of parts of the lung, often associated with position such as hunching). The incentive spirometer will help reduce the atelectasis and
improve your breathing
Instructions: COVID-19 in adults - Discharge instructions
Referrals:
Dong Osorio, [Family Provider] -
Additional Discharge Medication Instructions: Continue Paxlovid twice daily for 4 more days after discharge
Stop taking simvastatin until you finish your course of Paxlovid, may resume the following day
Use albuterol inhaler as needed for shortness of breath or wheezing
Prescriptions:
New
albuterol sulfate 90 mcg/actuation Hfa Aerosol Inhaler
2 puff inhalation R Q4HPRN PRN (Reason: shortness of breath or wheeze) 30 Days Qty: 6.7 0RF
benzonatate 100 mg Capsule
100 mg PO TIDPRN PRN (Reason: cough) 7 Days Qty: 30 0RF
Paxlovid 150-100 mg tablets,dose pack
See Rx Instructions .ROUTE .COMPLEX Qty: 20 0RF
Rx Instructions:
orally per package directions
Continued
pantoprazole 40 MG tablet,delayed release (DR/EC)
40 mg PO DAILY@1600
Trulicity 1.5 MG/0.5 ML pen injector
1.5 mg SQ MO
gabapentin 300 MG capsule
300 mg PO BID
cyclobenzaprine 10 mg Tablet
10 mg PO HS
cilostazol 50 mg Tablet
50 mg PO DAILY
levothyroxine 100 MCG tablet
100 mcg PO DAILY@07
lidocaine-prilocaine 2.5-2.5 % Cream
1 applic TOPICAL TUTHSA
clotrimazole-betamethasone 1-0.05 % Cream
1 applic TOPICAL DAILYPRN PRN (Reason: buttocks rash)
midodrine 10 mg Tablet
10 mg PO TID
aspirin 81 mg Tablet,Delayed Release (Dr/Ec)
81 mg PO DAILY Qty: 30 0RF
donepezil 10 mg Tablet
10 mg PO HS
acetaminophen [Tylenol Extra Strength] 500 mg Tablet
1,000 mg PO Q6HPRN PRN (Reason: mild pain)
Held
simvastatin 40 mg Tablet
40 mg PO HS
Hold Instructions: May resume once done with course of Paxlovid
Discharge Orders:
Discharge Patient (As Directed); Ordered 07/24/24
Ordered By: Artemio Mitchell
Discharge Date and Time
Discharge Date/Time: 07/24/24 15:21
Print Language: BELARUSIAN
== END 2024-07-24 15:21 | disposition home health service (06) | DRG 177 ==
LOC: ED 23:36
PROVIDERS: Registered Nurse; ADMITTING PHYSICIAN Internal Medicine; ATTENDING PHYSICIAN Internal Medicine; EMERGENCY PHYSICIAN Emergency Medicine; FAMILY PHYSICIAN Family Medicine
DX: U07.1 COVID-19 (principal); N18.6 End stage renal disease; D61.818 Other pancytopenia; J98.11 Atelectasis; I13.2 Hypertensive heart and chronic kidney disease with heart failure and with stage 5 chronic kidney disease, or end stage renal disease; E11.22 Type 2 diabetes mellitus with diabetic chronic kidney disease; K21.9 Gastro-esophageal reflux disease without esophagitis; G25.81 Restless legs syndrome; E11.40 Type 2 diabetes mellitus with diabetic neuropathy, unspecified; I50.9 Heart failure, unspecified; E78.00 Pure hypercholesterolemia, unspecified; E03.9 Hypothyroidism, unspecified; G47.30 Sleep apnea, unspecified; I95.1 Orthostatic hypotension; E11.51 Type 2 diabetes mellitus with diabetic peripheral angiopathy without gangrene; I25.10 Atherosclerotic heart disease of native coronary artery without angina pectoris; M48.00 Spinal stenosis, site unspecified; I25.2 Old myocardial infarction; Z79.4 Long term (current) use of insulin; Z79.82 Long term (current) use of aspirin; Z79.899 Other long term (current) drug therapy; Z85.59 Personal history of malignant neoplasm of other urinary tract organ; Z86.73 Personal history of transient ischemic attack (TIA), and cerebral infarction without residual deficits; Z90.5 Acquired absence of kidney; Z99.2 Dependence on renal dialysis; Z87.891 Personal history of nicotine dependence
CPT/HCPCS: 71046; 80048; 80053; 82962; 83036; 83605; 84443; 85025; 87040; 87502; 87811; 97166

== ENCOUNTER → 2024-11-06 12:47 | Outpatient (REF) | payer MEDICARE, SELFPAY ==
[2024-11-06 16:04] LABS: % Basophils 1.3 % (0-2); % Eosinophils 4.7 % (0-6); % Immature Granulocytes 0.3 % (0-0.5); % Lymphocytes 12.9 % (20.5-51.1); % Monocytes 17.6 % (1.7-9.3); % Neutrophils 63.2 % (42.2-75.2); Absolute Basophils 0.1 10^3/uL (0-0.2); Absolute Eosinophils 0.2 10^3/uL (0-0.7); Absolute Lymphocytes 0.5 10^3/uL (1.2-3.4); Absolute Monocytes 0.7 10^3/uL (0.1-0.6); Absolute Neutrophils 2.5 10^3/uL (1.4-6.5); Hematocrit 35.8 % (39.0-52.0); Hemoglobin 11.7 g/dL (13.0-18.0); Mean Corp Hgb Conc. 32.7 g/dL (33.0-37.0); Mean Corpuscular Hgb 35.5 pg (27.0-31.0); Mean Corpuscular Volume 108.5 fL (80.0-94.0); Mean Platelet Volume 10.7 fL (7.4-10.4); Nucleated Red Blood Cells % 0 % (-); Platelet Count 108 10^3/uL (130-400); Red Cell Dist. Width 15.4 % (11.5-14.5); White Blood Cell Count 3.9 10^3/uL (4.8-10.8)
[2024-11-06 16:08] LABS: ALT (SGPT) 32 U/L (0-50); AST (SGOT) 58 U/L (17-59); Albumin 3.9 g/dl (3.5-5.0); Alkaline Phosphatase 111 U/L (38-126); Blood Urea Nitrogen 32 mg/dl (9-20); Calcium 9.3 mg/dl (8.4-10.2); Carbon Dioxide 33 mmol/L (22-30); Chloride 100 mmol/L (98-107); Glucose 87 mg/dl (70-99); HDL Cholesterol 86 mg/dl; LDL Cholesterol, Calculated 42 mg/dl; Potassium 4.7 mmol/L (3.5-5.1); Sodium 142 mmol/L (135-145); Total Bilirubin 0.8 mg/dl (0.2-1.3); Total Cholesterol 139 mg/dl (50-199); Total Protein 6.4 g/dl (6.3-8.2); Triglyceride 59 mg/dl (10-149); Very Low Density Lipoprotein 11 mg/dl (0-30); eGFR 17.71
[2024-11-06 16:23] LABS: Total Thyroxine 8.03 ug/dl (5.5-11.0)
[2024-11-07 10:21] LABS: Glycohemoglobin (HgbA1c) 4.7 % (4.0-5.6)
== END ==
LOC: HWLAB 12:47
PROVIDERS: ATTENDING PHYSICIAN Family Medicine
DX: E03.9 Hypothyroidism, unspecified (principal); G45.9 Transient cerebral ischemic attack, unspecified; I25.10 Atherosclerotic heart disease of native coronary artery without angina pectoris; E78.2 Mixed hyperlipidemia; E11.40 Type 2 diabetes mellitus with diabetic neuropathy, unspecified
CPT/HCPCS: 36415; 80053; 80061; 83036; 84436; 84443; 85025

== ENCOUNTER → 2025-04-11 12:42 | Outpatient (REF) | payer OTHER, SELFPAY | LOC: HWRAD 12:42 | PROVIDERS: ATTENDING PHYSICIAN Family Medicine | DX: R05.9 Cough, unspecified (principal) | CPT/HCPCS: 71046 ==

== ENCOUNTER → 2025-05-05 10:09 | Outpatient (REF) | payer OTHER, SELFPAY | LOC: WOUND 10:09 | PROVIDERS: ATTENDING PHYSICIAN Surgery; FAMILY PHYSICIAN Family Medicine | DX: L89.150 Pressure ulcer of sacral region, unstageable (principal) | CPT/HCPCS: 99203 ==